=== PATIENT | male | born 1935 | race Caucasian/White ===

== ENCOUNTER 2016-03-13 10:50 | Day surgery (SDC) | payer MEDICARE, OTHER ==
[~2016-03-13 10:50] MED LIST: RINGERS SOLUTION,LACTATED 1,000 ML IV PRN
[2016-03-13 14:06] VITALS: BP 141/91
--- NOTE | 2016-03-13 17:52 | OR ---
Operative Report - Dictated Report Narrative: OPERATIVE REPORT DATE OF OPERATION: 03/13/2016 PREOPERATIVE DIAGNOSIS: Epigastric pain POSTOPERATIVE DIAGNOSIS: Esophageal stenosis with inability to enter the proximal esophagus OPERATION: Attempted EGD SURGEON: Yari Crowe MD ANESTHESIA: JEISON Dean CRNA INDICATIONS FOR PROCEDURE: The patient is an 80-year-old male referred by Dr. Lupe Churchill. The patient has had a previous Mike fundoplication with a long history of GERD symptoms and gastritis on 3 previous EGDs (most recent 2013 ) FINDINGS: Normal-appearing supraglottic larynx. Apparent stenosis at the level of the cricopharyngeus with inability to intubate the proximal esophagus. NARRATIVE OF PROCEDURE: The patient was identified preoperatively and prior to the administration of anesthetic a multidisciplinary timeout was observed. With the patient in the recumbent position and after the administration of intravenous sedation a bite block was placed and the patient's eyes covered with a towel. The flexible fiberoptic gastroscope was advanced into the posterior pharynx which appeared normal. The supraglottic larynx appeared normal. The cords appeared normal, moved well, and opposed in the midline. The scope was advanced under direct vision posterior to the larynx where a very narrow cricopharyngeal opening was encountered. Multiple attempts at maneuvering the scope were unsuccessful in intubation of the esophagus and the procedure was abandoned. The patient tolerated the anesthetic and procedure well without complication. He was transferred back to the ambulatory surgery area awake and in stable condition. The patient remained stable throughout a period of postoperative observation. He denied pain. He was able to tolerate PO intake and was up without assistance. I shared the operative findings with him and his daughter. He was given copies of the photographs which appear in the medical record. He was discharged home with instructions not to engage in hazardous activity today but he may return to normal activity tomorrow and advance diet as tolerated. I will discuss the patient with Dr. Lupe Churchill and make arrangements for further workup and testing as deemed appropriate. Reviewed and electronically signed
== END 2016-03-13 10:51 | disposition home or self-care (01) ==
LOC: AMB 10:50
PROVIDERS: ATTEND Surgery
PROC: 0DJ08ZZ Inspection of Upper Intestinal Tract, Via Natural or Artificial Opening Endoscopic (ICD-10-PCS; principal; 2016-03-13 16:00)
DX: K22.2 Esophageal obstruction (principal); I10 Essential (primary) hypertension; K21.9 Gastro-esophageal reflux disease without esophagitis; Z87.891 Personal history of nicotine dependence; Z68.28 Body mass index [BMI] 28.0-28.9, adult

== ENCOUNTER 2016-03-31 14:28 | Observation (INO) | payer MEDICARE, OTHER ==
--- OUTSIDE RECORDS SUMMARY | 2016-03-31 15:14 | XMS REPORT | Continuity of Care Document ---
:1935 Author Organization [facility] ([facility]) Address [address] [place] [address] Phone [phone] Care Team Providers Name Role Phone LupeIsaac Pedro Primary Care Provider [phone] Source Comments This disclosure is being made pursuant to the Care Everywhere program, applicable federal and state laws, and may not contain all informaitonavailable regarding this patient.[facility] ([facility]) Active Allergies and Adverse Reactions Allergen Noted Date Severity Reactions Comments Penicillins 10/19/2009 Angioedema Current Medications Prescription Sig. Disp. Refills Start Date End Date Status diazepam (VALIUM) 5 mg Take 5 mg by mouth Active tablet every 6 hours as needed. Ketoconazole (NIZORAL by Apply externally Active A-D) 1 % Sham route. meTHIMAzole 5 mg tablet Take 5 mg by mouth 3 Active times daily. citalopram 20 mg tablet Take 20 mg by mouth Active daily. OTHER Take by mouth Active daily. Vit D3 1000 iu omeprazole (PRILOSEC) 20 Take 20 mg by mouth Active mg extended release daily. capsule ACETAMINOPHEN (TYLENOL Take 1-2 Tabs by Active PO) mouth as needed. 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 Pulse 61 02/05/2015 9:22 PM WOOD FINISHER APPRENTICE Temperature 35.9 C (96.6 F) 02/05/2015 9:22 PM WOOD FINISHER APPRENTICE Respiratory Rate 20 02/05/2015 9:22 PM WOOD FINISHER APPRENTICE Height 1.72 m (5' 7.72") 05/24/2010 10:43 AM CDT Weight 64.864 kg (143 lb) 05/24/2010 10:43 AM CDT Body Mass Index 21.93 05/24/2010 10:43 AM CDT Oxygen Saturation 90% 02/05/2015 9:22 PM 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
--- NOTE | 2016-03-31 15:15 | ERNOTE ---
Dizziness ER Record Presenting Symptoms: dizziness Time Seen by Provider: 03/31/16 14:38 Source: patient, family - daughter and grandson Immunizations: IMMUNIZATION HX Immunizations Up to Date Yes History of Influenza Vaccine Yes Hx Pneumococcal Vaccination Yes Allergies/Adverse Reactions: Allergies Allergy/AdvReac Type Severity Reaction Status Date / Time Penicillins Allergy Intermediate FEET Verified 03/31/16 14:42 SWELLING Home Medications: HOME MEDICATIONS Diazepam [Valium] 5 mg PO DAILY PRN 04/10/13 [Last Taken Unknown] Esomeprazole Magnesium [Nexium] 40 mg PO DAILY 04/10/13 [Last Taken Unknown] Sennosides [Senna] 2 tab PO BID PRN 04/10/13 [Last Taken Unknown] Albuterol Sulfate/Ipratropium [Duoneb 2.5-0.5MG/3ML Soln] 3 ml IH Q4HX2 PRN MDD 6 DOSES 03/10/16 [Last Taken Unknown] Albuterol Sulfate/Ipratropium [Duoneb 2.5-0.5MG/3ML Soln] 3 ml IH QID 03/10/16 [ Last Taken Unknown] Atenolol [Tenormin] 50 mg PO DAILY 03/10/16 [Last Taken 03/12/16] Azelastine HCl [Astepro Nasal [place]] 2 spray NS BID 03/10/16 [Last Taken Unknown ] Calcitriol [Rocaltrol] 0.25 mcg PO DAILY 03/10/16 [Last Taken Unknown] Sucralfate [Carafate] 1 gm PO QID 03/10/16 [Last Taken Unknown] Diltiazem HCl [Cardizem LA] 180 mg PO DAILY 03/31/16 [Last Taken Unknown] - History of Present Illness Narrative: PT STATES HE STARTED A NEW MEDICINE TODAY , CARDIZEM LA 180 MG , TAKEN ABOUT 0830 AND THEN ABOUT 1300 NOTED FEELING DIZZY AND LIGHTHEADED ESPECIALLY WHEN HE TRIED TO STAND SO HE CAME IN. HE RELATES THAT [address] ROBERTO TRIED TO DO AN EGD BUT HIS ESOPHAGUS WAS TOO TIGHT AND HE WAS TOLD THAT HIS OLD BP MEDICINE , AMLODIPINE 2.5 MG, MAY BE CAUSING IT. HE CONSULTED WITH DR HORN AND THEY DECIDED TO START THE NEW ONE WHICH HE JUST PICKED UP YESTERDAY AND TOOK TODAY . PT DENIES ANY SOB OR CHEST PAINS. HE SAYS HE HAS BEEN TAKING THE AMLODIPINE UP UNTIL YESTERDAY. HE FEELS FINE WHILE LAYING HERE ON THE ER CART. Review of Systems - Review of Systems Constitutional: Present: See HPI EYE: Present: no symptoms reported ENT: Present: no symptoms reported Respiratory: Present: no symptoms reported Cardiology: Present: no symptoms reported Gastrointestinal/Abdominal: Present: no symptoms reported Genitourinary: Present: no symptoms reported Musculoskeletal: Present: no symptoms reported Skin: Present: no symptoms reported Neurological: Present: dizziness/light-headedness Endocrine: Present: no symptoms reported Hematologic/Lymphatic: Present: no symptoms reported Psych: Present: no symptoms reported All Other Systems: All systems neg except as marked - Patient's Past Medical History Patient History - Medical: Chronic Pain, GERD, Renal Failure, Other Patient History - Cardiac/Respiratory: Hypertension Patient History - Cancer: Skin Patient History - Surgical Procedures: Appendectomy, Back Surgery, Cancer Surgery, Colonoscopy, EGD, Total Hip Replacement, Other - TANIKA Patient History - Other: None - Family History Mother Family History - Medical: , Arthritis, Diabetes Type 2, Liver Disease, Renal Disease, Other Family History - Cardiac/Respiratory: Hypertension Family History - Cancer: No pertinent family hx Father Family History - Medical: , Other Family History - Cardiac/Respiratory: No pertinent hx Family History - Cancer: No pertinent family hx - Social History Living Situations: alone Abuse History: No History of abuse Psych History: Current tx/ever been on anti-depressants or anti-anxiety meds Smoking Status: Former smoker Alcohol Use: none Drug Use: none - Immunizations Immunizations Up to Date: Yes Hx Pneumococcal Vaccination: Yes History of Influenza Vaccine: Yes Physical Exam - Physical Exam General Appearance: Present: wd/wn, alert, no apparent distress Respiratory: Present: no respiratory distress, normal breath sounds, no accessory muscle use, chest nontender, lungs clear Cardiovascular/Chest: Present: regular rate, rhythm, no murmur, normal peripheral pulses, bradycardia, other - HEART RATE STEADY AT 40 BPM. Gastrointestinal/Abdominal: Present: normal bowel sounds, nontender, nondistended, soft, no organomegaly Extremity Exam: Present: normal inspection, non-tender, no edema, normal range of motion Neurological Exam: Present: alert, oriented, normal mood/affect, no motor/ sensory deficits Skin Exam: Present: normal color, warm/dry ED Progress - Date and Time Seen: Date and Time: 03/31/16 15:14 CALLED TO TALK WITH PCP , DR BLANC , OFFICE SAY THEY WILL FIND HIM AND HAVE HIM CALL ME BACK. 03/31/16 15:[address] HORN = HE WILL ADMIT TO OBS FOR TELEMETRY. PT AND FAMILY WERE MADE AWARE. - Results and Orders Patient's Lab Results:: I have reviewed the patient's lab results. Results and Orders: CBC DONE , CMP AND TROPONIN STILL PENDING. TROPONIN = WNL AND HIS CREATININE IS HIGH AND GLUCOSE IS SL. ELEVATED WELL ( 156) - Vital Signs Vital Signs: Vital Signs 03/31/16 03/31/16 14:30 15:00 Temperature 35.1 C L 35.1 C L Pulse Rate 39 L 39 L Respiratory 19 19 Rate Blood Pressure 98/57 98/51 O2 Sat by Pulse 93 95 Oximetry - EKG EKG: other - SUPRAVENTRICULAR STEVIE CARDIA WITH HR 39, - X-Ray X-Ray #1 X-Ray: chest X-ray Comments: Patient Patient Name:HYACINTH TAMEZ Date: 1935 Sex: M Order Number: [id number] Unique Exam ID: [id number] Exam Requested: CXRSINGLE - Chest Single View * Date Scheduled: Study Priority: Requesting Service: Requesting Physician: Brady Gallardo Reason for Exam: Radiological Report : Exam Date: 03/31/2016 14:56 Ordering Physician: Brady Gallardo Indication: Bradycardia Comparison: August 18, 2015 Technique: Chest Single View * Findings: The lungs demonstrate no focal consolidation or acute abnormality. There is no pleural effusion or pneumothorax. Cardiac silhouette and pulmonary vasculature are normal. The osseous structures are within normal limits for age. IMPRESSION: No acute cardiopulmonary process detected Electronically signed by Krishan Sim M.D.. - Progress/Reassessment Chief Complaint: Dizziness Progress:: Unchanged Plan - Plan Plan: AFTER D/W PCP . PT WILL ADMITTED TO OBS-TELE. Departure Clinical Impression: Bradycardia, Medication adverse effect - Departure Disposition: [facility] Condition: Fair
[2016-03-31 15:18] LABS: Hematocrit 48.2 % (42.0-52.0); Hemoglobin 15.5 gm/dL (13.5-18.0); Mean Cell Volume 95.8 fl (78-100); Mean Corpuscular Hemoglobin 30.8 pg (27-31); Mean Corpuscular Hgb Conc 32.2 g/dl (32-36); Neutrophil % 61.4 % (42-75.0); Platelet Count 212 K/mm3 (150-450); Red Blood Count 5.03 M/mm3 (4.7-6.0); Red Cell Distribution Width 14.7 % (11.5-14.0); White Blood Count 9.8 K/mm3 (4.0-10.5)
[2016-03-31] MEDS ORDERED: NORMAL SALINE 1,000 ML IV ONE (15:23)
[2016-03-31] MEDS ORDERED: NORMAL SALINE 500 ML IV ONE (15:27)
[2016-03-31 15:34] LABS: ALT 25 U/L (19-67); AST 22 U/L (0-48); Albumin * 3.2 gm/dl (3.4-5.0); Alkaline Phosphatase * 63 U/L (50-170); Anion Gap 14.7 mmol/L (6.8-13.8); BUN/Creatinine Ratio 6.7 (9.0-21.6); Bilirubin, Total 0.3 mg/dL (0.0-1.1); Blood Urea Nitrogen 21 mg/dL (6-23); Ca. Corrected For Albumin 9.4 mg/dL (8.4-10.2); Calcium * 9.1 mg/dL (7.9-10.9); Carbon Dioxide 23.9 mmol/L (24-32.6); Chloride 105 mmol/L (97-106); Glucose * 156 mg/dL (70-110); Potassium 4.6 mmol/L (3.4-4.6); Sodium 139 mmol/L (132-142); Total Protein 7.4 gm/dL (6.2-8.2)
[2016-03-31 15:46] LABS: Troponin I Less than 0.017 ng/ml (0.00-0.10)
--- OUTSIDE RECORDS SUMMARY | 2016-03-31 15:46 | XMS REPORT | Continuity of Care Document ---
:1935 Author Organization [facility] ([facility]) Address [address] [place] [address] Phone [phone] Care Team Providers Name Role Phone LupeIsaac Pedro Primary Care Provider [phone] Source Comments This disclosure is being made pursuant to the Care Everywhere program, applicable federal and state laws, and may not contain all informaitonavailable regarding this patient.[facility] ([facility]) Active Allergies and Adverse Reactions Allergen Noted [...] Taken Blood Pressure 137/64 02/05/2015 9:22 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
[2016-03-31] MEDS: NORMAL SALINE 1,000 ML IV PRN ×2 (15:56→20:30)
[2016-03-31] MEDS ORDERED: ACETAMINOPHEN 325 MG TABLET PO PRN (17:32)
[2016-03-31] MEDS ORDERED: ALBUTEROL SULFATE/IPRATROPIUM 3 ML NEBU IH PRN (17:32)
[2016-03-31] MEDS ORDERED: SENNOSIDES 8.6 MG TABLET PO PRN (17:32)
[2016-03-31] MEDS ORDERED: DIAZEPAM 5 MG TABLET PO PRN (17:32)
--- NOTE | 2016-03-31 17:32 | HP ---
Chief Complaint - Chief Complaint Date of Service: 03/31/16 Time of Service: 18:05 Chief Complaint: Dizziness History of Present Illness: PT STATES HE STARTED A NEW MEDICINE TODAY , CARDIZEM LA 180 MG , TAKEN ABOUT 0830 AND THEN ABOUT 1300 NOTED FEELING DIZZY AND LIGHTHEADED ESPECIALLY WHEN HE TRIED TO STAND SO HE CAME IN TO THE [facility] ER. HE RELATES THAT [address] ROBERTO TRIED TO DO AN EGD, BUT HIS ESOPHAGUS WAS TOO TIGHT AND HE WAS TOLD THAT HIS OLD BP MEDICINE , AMLODIPINE 2.5 MG, MAY BE CAUSING IT. HE CONSULTED WITH DR HORN AND THEY DECIDED TO START THE NEW ONE WHICH HE JUST PICKED UP YESTERDAY AND TOOK TODAY . PT DENIES ANY SOB OR CHEST PAINS. HE SAYS HE HAS BEEN TAKING THE AMLODIPINE UP UNTIL YESTERDAY. HE FEELS FINE WHILE LAYING HERE ON THE ER CART. HE DID IN FACT SUBSEQUENTLY TO THE ATTEMPTED EGD, HAVE A BARIUM SWALLOW WHICH SHOWED MILD REFLUX AND TERTIARY SPASMS OF THE DISTAL ESOPHAGUS. IN THE EMERGENCY ROOM TODAY HE WAS FOUND TO HAVE A BP OF ABOUT 90 SYSTOLIC AND A PULSE RATE IN THE 30's WITH THE EKG SHOWING SUPRAVENTRICULAR BRADYCARDIA AND THE CXR BEING NON ACUTE. - Patient's Past Medical History Patient History - Medical: Chronic Pain, GERD, Renal Failure, Other - Chronic rhinitis, dizziness, hepatitis, tachycardia Patient History - Cardiac/Respiratory: Hypertension Patient History - Cancer: Skin Patient History - Surgical Procedures: Appendectomy, Back Surgery, Cancer Surgery, Colonoscopy, EGD, Total Hip Replacement, Other - TANIKA Patient History - Other: None - Family History Mother Family History - Medical: , Arthritis, Diabetes Type 2, Liver Disease, Renal Disease Family History - Cardiac/Respiratory: Hypertension Family History - Cancer: No pertinent family hx Father Family History - Medical: Family History - Cardiac/Respiratory: No pertinent hx Family History - Cancer: No pertinent family hx - Social History Living Situations: alone Abuse History: No History of abuse Psych History: Current tx/ever been on anti-depressants or anti-anxiety meds Smoking Status: Former smoker Have you smoked in the past 12 months: No Do you dip or chew tobacco: No Smoking Stop Date: 08/26/14 Alcohol Use: none Drug Use: none - Immunizations Immunizations Up to Date: Yes Hx Pneumococcal Vaccination: Yes History of Influenza Vaccine: Yes Review Of Systems (GEN) - Review of Systems Generalized/Overall Review: Present: Weakness, Fatigue EENTM: Present: No Symptoms Reported Respiratory: Present: No Symptoms Reported Cardiac: Present: No Symptoms Reported Abdominal: Present: No Symptoms Reported Genitourinary: Present: No Symptoms Reported Musculoskeletal: Present: Other - Right buttock and proximal right thigh pain, with abnormal ZOFIA right leg. Neurological: Present: No Symptoms Reported Skin: Present: No Symptoms Reported Endocrine: Present: No Symptoms Reported Misc: All systems neg except as marked Immunizations: IMMUNIZATION HX Immunizations Up to Date Yes History of Influenza Vaccine Yes Hx Pneumococcal Vaccination Yes Allergies/Adverse Reactions: Allergies Allergy/AdvReac Type Severity Reaction Status Date / Time Penicillins Allergy Intermediate FEET Verified 03/31/16 17:16 SWELLING diltiazem AdvReac Severe significant Verified 03/31/16 17:59 bradycardia to the 30's Home Medications: HOME MEDICATIONS Diazepam [Valium] 5 mg PO DAILY PRN 04/10/13 [Last Taken Unknown] Esomeprazole Magnesium [Nexium] 40 mg PO DAILY 04/10/13 [Last Taken Unknown] Sennosides [Senna] 2 tab PO BID PRN 04/10/13 [Last Taken Unknown] Albuterol Sulfate/Ipratropium [Duoneb 2.5-0.5MG/3ML Soln] 3 ml IH Q4HX2 PRN MDD 6 DOSES 03/10/16 [Last Taken Unknown] Albuterol Sulfate/Ipratropium [Duoneb 2.5-0.5MG/3ML Soln] 3 ml IH QID 03/10/16 [ Last Taken Unknown] Atenolol [Tenormin] 50 mg PO DAILY 03/10/16 [Last Taken 03/12/16] Azelastine HCl [Astepro Nasal [place]] 2 spray NS BID 03/10/16 [Last Taken Unknown ] Calcitriol [Rocaltrol] 0.25 mcg PO DAILY 03/10/16 [Last Taken Unknown] Sucralfate [Carafate] 1 gm PO QID 03/10/16 [Last Taken Unknown] Acetaminophen [Tylenol] 650 mg PO QID PRN 03/31/16 [Last Taken Unknown] Diltiazem HCl [Cardizem LA] 180 mg PO DAILY 03/31/16 [Last Taken Unknown] Exam - Exam Vital Signs: Vital Signs - Last Taken Selected Entries 03/31/16 03/31/16 03/31/16 14:30 15:00 15:54 Temperature 35.1 C L 35.1 C L Temperature Tympanic Tympanic Source Pulse Rate 39 L 39 L 36 L Respiratory 19 19 19 Rate Blood Pressure 98/57 98/51 95/50 O2 Sat by Pulse 93 95 95 Oximetry Oxygen Delivery Room Air Room Air Room Air Method 03/31/16 16:50 Temperature 36.4 C L Temperature Oral Source Pulse Rate 35 L Respiratory 16 Rate Blood Pressure 87/42 O2 Sat by Pulse 93 Oximetry Oxygen Delivery Room Air Method Constitutional: Present: Alert, Oriented x3, Cooperative, Well developed, Well nourished, No distress, Elderly ENT Exam: Present: normal ENT inspection, pharynx normal, TMs normal Eye Exam: bilateral eye: normal inspection, PERRL, EOMI Neck: Present: normal inspection Back Exam: Present: normal inspection Respiratory: Present: lungs clear, no respiratory distress Cardiovascular/Chest: Present: regular rate, rhythm, no murmur, bradycardia Abdomen: Present: Normal bowel sounds, soft, nontender, nondistended, no rebound tenderness, no hepatospenomegaly, no masses Extremity: Present: normal inspection, no pedal edema Skin Exam: Present: normal color, warm/dry, no cyanosis Neurologic: Present: alert, oriented x 3 Appearance: Present: appropriate appearance, appropriate insight, neat, no memory impairment Eye contact: Present: cooperative, good eye contact, normal speech Thoughts: Present: normal thought pattern Diagnostic Studies: Laboratory Results WBC 9.8 K/mm3 (4.0-10.5) 03/31/16 15:10 RBC 5.03 M/mm3 (4.7-6.0) 03/31/16 15:10 Hgb 15.5 gm/dL (13.5-18.0) 03/31/16 15:10 Hct 48.2 % (42.0-52.0) 03/31/16 15:10 MCV 95.8 fl (78-100) 03/31/16 15:10 MCH 30.8 pg (27-31) 03/31/16 15:10 MCHC 32.2 g/dl (32-36) 03/31/16 15:10 RDW 14.7 % (11.5-14.0) H 03/31/16 15:10 Plt Count 212 K/mm3 (150-450) 03/31/16 15:10 MPV 11.0 fl (6.0-9.5) H 03/31/16 15:10 Immature Gran % (Auto) 0.70 % (0.001-0.429) H 03/31/16 15:10 Immature Gran # (Auto) 0.07 K/mm3 (0.000-0.0310) H 03/31/16 15:10 Neutrophils % 61.4 % (42-75.0) 03/31/16 15:10 Lymphocytes % 25.0 % (20-51) 03/31/16 15:10 Monocytes % 8.1 % (0.0-9) 03/31/16 15:10 Eosinophils % 3.9 % (0.0-3.0) H 03/31/16 15:10 Basophils % 0.9 % (0.0-1.0) 03/31/16 15:10 Nucleated RBC % 0.0 k/mm3 (0-1) 03/31/16 15:10 Neutrophils # 6.0 K/mm3 (1.3-6.0) 03/31/16 15:10 Lymphocytes # 2.4 k/mm3 (1.5-3.5) 03/31/16 15:10 Monocytes # 0.8 k/mm3 (0.0-1.0) 03/31/16 15:10 Eosinophils # 0.4 k/mm3 (0.0-0.7) 03/31/16 15:10 Absolute Basophils 0.1 k/mm3 (0.0-0.1) 03/31/16 15:10 Sodium 139 mmol/L (132-142) 03/31/16 15:10 Plasma Sodium 140 mmol/L (130-142) 03/31/16 15:10 Potassium 4.6 mmol/L (3.4-4.6) 03/31/16 15:10 Chloride 105 mmol/L (97-106) 03/31/16 15:10 Carbon Dioxide 23.9 mmol/L (24-32.6) L 03/31/16 15:10 Anion Gap 14.7 mmol/L (6.8-13.8) H 03/31/16 15:10 BUN 21 mg/dL (6-23) 03/31/16 15:10 Creatinine 3.12 mg/dL (0.4-1.4) H 03/31/16 15:10 Est GFR (Non-Af Amer) 21 mL/min (60-130) L 03/31/16 15:10 BUN/Creatinine Ratio 6.7 (9.0-21.6) L 03/31/16 15:10 Random Glucose 156 mg/dL (70-110) H 03/31/16 15:10 Calcium 9.1 mg/dL (7.9-10.9) 03/31/16 15:10 Calcium Adj for Albumin 9.4 mg/dL (8.4-10.2) 03/31/16 15:10 Total Bilirubin 0.3 mg/dL (0.0-1.1) 03/31/16 15:10 AST 22 U/L (0-48) 03/31/16 15:10 ALT 25 U/L (19-67) 03/31/16 15:10 Alkaline Phosphatase 63 U/L (50-170) 03/31/16 15:10 Troponin I Less than 0.017 ng/ml (0.00-0.10) 03/31/16 15:10 Total Protein 7.4 gm/dL (6.2-8.2) 03/31/16 15:10 Albumin 3.2 gm/dl (3.4-5.0) L 03/31/16 15:10 Assessment/Plan - Narrative Narrative: Monitor. Support BP as needed. Up with help. Avoid beta blockers and calcium channel blockers with chronotropic effects. Estimate stay of one midnight. Will need vascular and nephrology evaluation as an outpatient. IV fluids. - Assessment/Plan (1) Hypertension Problem: Chronic Qualifiers: Hypertension type: essential hypertension Qualified Code(s): I10 - Essential (primary) hypertension (2) Tachycardia Problem: Chronic (3) Chronic rhinitis Problem: Chronic (4) Dizziness Assessment: Both acute with this medication and chronically in the past, off and on Problem: Acute (5) Esophageal spasm Problem: Chronic (6) GERD (gastroesophageal reflux disease) Problem: Chronic (7) DJD (degenerative joint disease) Problem: Chronic Qualifiers: Osteoarthritis location: unspecified site Osteoarthritis type: primary Qualified Code(s): M19.91 - Primary osteoarthritis, unspecified site (8) Chronic pain syndrome Problem: Chronic (9) Bradycardia Problem: Acute (10) Medication adverse effect Assessment: probably due to diltiazem. Problem: Acute (11) Claudication of right lower extremity Problem: Acute (12) Acute renal failure superimposed on stage 4 chronic kidney disease Problem: Acute
[2016-03-31] MEDS ORDERED: ENOXAPARIN SODIUM 30 MG/0.3 ML SYRG SC SCH (17:45)
[2016-03-31] MEDS: SUCRALFATE 1 G TABLET PO SCH ×2 (18:48→20:31)
[2016-03-31] MEDS: ALBUTEROL SULFATE/IPRATROPIUM 3 ML NEBU IH SCH (19:23)
[2016-03-31] MEDS: AZELASTINE HCL 200 SPRAY INHALER NS SCH (20:31)
[2016-04-01] MEDS: ALBUTEROL SULFATE/IPRATROPIUM 3 ML NEBU IH SCH (06:07)
[2016-04-01 06:20] LABS: Hematocrit 40.6 % (42.0-52.0); Hemoglobin 13.3 gm/dL (13.5-18.0); Mean Cell Volume 95.1 fl (78-100); Mean Corpuscular Hemoglobin 31.1 pg (27-31); Mean Corpuscular Hgb Conc 32.8 g/dl (32-36); Mean Platelet Volume 11.2 fl (6.0-9.5); Neutrophil % 70.3 % (42-75.0); Platelet Count 162 K/mm3 (150-450); Red Blood Count 4.27 M/mm3 (4.7-6.0)
[2016-04-01 06:28] VITALS: BP 114/57
[2016-04-01 06:50] LABS: Anion Gap 17.1 mmol/L (6.8-13.8); BUN/Creatinine Ratio 7.8 (9.0-21.6); Calcium * 8.7 mg/dL (7.9-10.9); Carbon Dioxide 21.1 mmol/L (24-32.6); Potassium 4.2 mmol/L (3.4-4.6); T4 Free * 0.95 ng/dL (0.76-1.46); TSH * 3.39 uIU/mL (0.358-3.74)
[2016-04-01] MEDS ORDERED: PANTOPRAZOLE SODIUM 40 MG TABLET.EC PO SCH (07:00)
--- NOTE | 2016-04-01 07:09 | DS ---
(1) Hypertension Problem: Chronic Qualifiers: Hypertension type: essential hypertension Qualified Code(s): I10 - Essential (primary) hypertension (2) Tachycardia Problem: Chronic (3) Chronic rhinitis Problem: Chronic (4) Dizziness Problem: Resolved (5) Esophageal spasm Problem: Chronic (6) GERD (gastroesophageal reflux disease) Problem: Chronic Qualifiers: Esophagitis presence: without esophagitis Qualified Code(s): K21.9 - Gastro -esophageal reflux disease without esophagitis (7) DJD (degenerative joint disease) Problem: Chronic Qualifiers: Osteoarthritis location: unspecified site Osteoarthritis type: primary Qualified Code(s): M19.91 - Primary osteoarthritis, unspecified site (8) Chronic pain syndrome Problem: Chronic (9) Bradycardia Problem: Resolved (10) Medication adverse effect Problem: Resolved (11) Claudication of right lower extremity Problem: Acute (12) Acute renal failure superimposed on stage 4 chronic kidney disease Problem: Acute Description of Stay: Both his beta brian and diltiazem were stopped. His moderately severe bradycardia and hyptotension resolved spontaneously. This morning, he is symptom free, his pulse is in the 70's and his BP ranges from 110-120 systolic. He already sees Dr. Hart for his stage 4 renal failure, and I note his creatinine is a little higher this morning than it was yesterday. He has claudication in his right leg, and we will refer him to vascular when I see him in the office in 6 days. Procedures Performed: none Discharge Disposition: Home self care Disposition: Home self-care Condition: Good Discharge Diet: General/regular food Referrals: Pedro Paz MD [Primary Care Provider] - Problem Oriented Discharge Instructions to Patient/Family: Bradycardia Additional Patient Instructions (free text): Followup with Dr. Neri in 6 days. CBC and BMP blood test in 6 days. Complete Home Medications List: Complete Home Medication List: Diazepam [Valium] 5 mg PO DAILY PRN 04/10/13 Esomeprazole Magnesium [Nexium] 40 mg PO DAILY 04/10/13 Sennosides [Senna] 2 tab PO BID PRN 04/10/13 Albuterol Sulfate/Ipratropium [Duoneb 2.5-0.5MG/3ML Soln] 3 ml IH Q4HX2 PRN MDD 6 DOSES 03/10/16 Albuterol Sulfate/Ipratropium [Duoneb 2.5-0.5MG/3ML Soln] 3 ml IH QID 03/10/16 Azelastine HCl [Astepro Nasal [place]] 2 spray NS BID 03/10/16 Calcitriol 0.25 mcg PO DAILY 03/10/16 Sucralfate [Carafate] 1 gm PO QID 03/10/16 Acetaminophen [Tylenol] 650 mg PO QID PRN 03/31/16
[2016-04-01] MEDS: SUCRALFATE 1 G TABLET PO SCH (08:17)
[2016-04-01] MEDS: AZELASTINE HCL 200 SPRAY INHALER NS SCH (08:17)
[2016-04-01] MEDS ORDERED: CALCITRIOL 0.25 MCG CAPSULE PO SCH (09:00)
== END 2016-04-01 10:00 | disposition home or self-care (01) ==
LOC: ER 14:28 → MS 15:41
PROVIDERS: ADMIT Allergy & Immunology; ATTEND Allergy & Immunology
DX: R00.1 Bradycardia, unspecified (principal); T46.1X5A Adverse effect of calcium-channel blockers, initial encounter; I95.2 Hypotension due to drugs; N17.9 Acute kidney failure, unspecified; I12.9 Hypertensive chronic kidney disease with stage 1 through stage 4 chronic kidney disease, or unspecified chronic kidney disease; N18.4 Chronic kidney disease, stage 4 (severe); Z87.891 Personal history of nicotine dependence; I73.9 Peripheral vascular disease, unspecified; G89.4 Chronic pain syndrome; M15.9 Polyosteoarthritis, unspecified; K21.9 Gastro-esophageal reflux disease without esophagitis; R00.0 Tachycardia, unspecified
CPT/HCPCS: 36415; 71010; 80048; 80053; 84439; 84443; 84484; 85025; 93005; 94640; 96372; 99283; G0378

== ENCOUNTER 2016-12-13 17:46 | Emergency (ER) | payer MEDICARE, OTHER ==
--- NOTE | 2016-12-13 18:15 | ERNOTE ---
Dizziness ER Record Presenting Symptoms: dizziness Time Seen by Provider: 12/13/16 18:05 Source: patient Exam Limitations: no limitations Immunizations: IMMUNIZATION HX Immunizations Up to Date Yes History of Influenza Vaccine Yes Hx Pneumococcal Vaccination Yes Allergies/Adverse Reactions: Allergies Allergy/AdvReac Type Severity Reaction Status Date / Time Penicillins Allergy Intermediate FEET Verified 12/13/16 17:57 SWELLING diltiazem AdvReac Severe significant Verified 12/13/16 17:57 bradycardia to the 30's Home Medications: HOME MEDICATIONS Diazepam [Valium] 5 mg PO DAILY PRN 04/10/13 [Last Taken Unknown] Esomeprazole Magnesium [Nexium] 40 mg PO DAILY 04/10/13 [Last Taken Unknown] Sennosides [Senna] 2 tab PO BID PRN 04/10/13 [Last Taken Unknown] Azelastine HCl [Astepro Nasal [place]] 2 spray NS BID 03/10/16 [Last Taken Unknown ] Calcitriol 0.25 mcg PO DAILY 03/10/16 [Last Taken Unknown] Sucralfate [Carafate] 1 gm PO QID 03/10/16 [Last Taken Unknown] Acetaminophen [Tylenol] 650 mg PO QID PRN 03/31/16 [Last Taken Unknown] Hydrocortisone Valerate 0.2 appl TP BID 09/12/16 [Last Taken Unknown] Lipitor 80 mg PO DAILY 09/12/16 [Last Taken Unknown] Enalapril Maleate [Vasotec] 2.5 mg PO DAILY 12/13/16 [Last Taken Unknown] Ipratropium [place] [Ipratropium [place] (Atrovent)] 0.5 mg IH QID 12/13/16 [ Last Taken Unknown] Ipratropium/Albuterol Sulfate [Combivent Respimat Inhal [place]] 1 puff IH QID 02/28 [Last Taken Unknown] Meclizine HCl 25 mg PO BID #10 tablet 12/13/16 [Last Taken Unknown] Pantoprazole Sodium [Protonix] 40 mg PO DAILY 12/13/16 [Last Taken Unknown] - History of Present Illness Narrative: Patient presents to the emergency room for dizziness that he's had for 6 months. He states that he blames it on a heart medicine however this examiner is unable to find any cardiac medication that this patient is taking. Denies any headaches lightheadedness and blurry vision or visual changes he states that he has been dizzy for 6 months. Review of Systems - Review of Systems Constitutional: Present: no symptoms reported EYE: Present: no symptoms reported ENT: Present: no symptoms reported Respiratory: Present: no symptoms reported Cardiology: Present: no symptoms reported Gastrointestinal/Abdominal: Present: no symptoms reported Genitourinary: Present: no symptoms reported Musculoskeletal: Present: no symptoms reported Skin: Present: no symptoms reported Neurological: Present: dizziness/light-headedness - patient complains of having been dizzy for 6 months. - Patient's Past Medical History Patient History - Medical: Chronic Pain, GERD, Renal Failure, Other Patient History - Cardiac/Respiratory: Hypertension Patient History - Cancer: Skin Patient History - Surgical Procedures: Appendectomy, Back Surgery, Cancer Surgery, Colonoscopy, EGD, Total Hip Replacement, Other Patient History - Other: None - Family History Mother Family History - Medical: , Arthritis, Diabetes Type 2, Liver Disease, Renal Disease Family History - Cardiac/Respiratory: Hypertension Family History - Cancer: No pertinent family hx Father Family History - Medical: Family History - Cardiac/Respiratory: No pertinent hx Family History - Cancer: No pertinent family hx - Social History Living Situations: home Abuse History: No History of abuse Psych History: Current tx/ever been on anti-depressants or anti-anxiety meds Alcohol Use: none Drug Use: none - Immunizations Immunizations Up to Date: Yes Hx Pneumococcal Vaccination: Yes History of Influenza Vaccine: Yes Physical Exam - Physical Exam General Appearance: Present: wd/wn, alert, no apparent distress Head Exam: Present: normal inspection, no evidence of injury Eye Exam: Normal inspection: bilateral, PERRL: bilateral, EOMI: bilateral Ears, Nose, Throat: Present: normal ENT inspection, normal pharynx Neck: Present: normal inspection, nontender, supple Respiratory: Present: no respiratory distress, normal breath sounds, no accessory muscle use, chest nontender, lungs clear Cardiovascular/Chest: Present: regular rate, rhythm, no murmur, normal peripheral pulses Neurological Exam: Present: alert, oriented, normal mood/affect, other - patient is awake alert and oriented he has normal facial features he is not slurring his speech. Dizziness gets worse when he turns his head. He denies any nausea or vomiting. ED Progress - Results and Orders Patient's Lab Results:: I have reviewed the patient's lab results. - Vital Signs Patient's Vital Signs:: I have reviewed the patient's vital signs. Vital Signs: Vital Signs 12/13/16 17:53 Temperature 36.2 C L Pulse Rate 73 Respiratory 12 Rate Blood Pressure 131/64 O2 Sat by Pulse 93 Oximetry - CT/Ultrasound CT/Ultrasound Narrative: CT of the head was read as no acute changes this patient has been dizzy for 6 months. - Progress/Reassessment Chief Complaint: Dizziness Plan - Plan Plan: The patient's dizziness has been going on for 6 months there is no exacerbation of his symptoms. I believe this patient may have benign positional vertigo he will be treated appropriately. Departure Clinical Impression: Benign positional vertigo Qualifiers: Laterality: unspecified laterality Qualified Code(s): H81.10 - Benign paroxysmal vertigo, unspecified ear - Departure Disposition: Home self-care Condition: Fair Instructions: Vertigo, [id number] Referrals: Pedro Paz MD [Primary Care Provider] - Prescriptions: Meclizine HCl 25 mg PO BID #10 tablet
[2016-12-13 18:24] LABS: Hematocrit 50.8 % (42.0-52.0); Hemoglobin 17.3 gm/dL (13.5-18.0); Mean Cell Volume 89.3 fl (78-100); Mean Corpuscular Hemoglobin 30.4 pg (27-31); Mean Corpuscular Hgb Conc 34.1 g/dl (32-36); Mean Platelet Volume 9.5 fl (6.0-9.5); Neutrophil # 9.1 K/mm3 (1.3-6.0); Neutrophil % 78.4 % (42-75.0); Platelet Count 251 K/mm3 (150-450); Red Blood Count 5.69 M/mm3 (4.7-6.0); White Blood Count 11.7 K/mm3 (4.0-10.5)
[2016-12-13 18:34] LABS: Albumin * 3.6 gm/dl (3.4-5.0); Anion Gap 15.5 mmol/L (6.8-13.8); BUN/Creatinine Ratio 11.4 (9.0-21.6); Bilirubin, Total 0.6 mg/dL (0.0-1.1); Ca. Corrected For Albumin 9.5 mg/dL (8.4-10.2); Calcium * 9.5 mg/dL (7.9-10.9); Carbon Dioxide 24.2 mmol/L (24-32.6); Potassium 4.7 mmol/L (3.4-4.6); Total Protein 8.1 gm/dL (6.2-8.2)
[2016-12-13 19:08] LABS: Urine Bilirubin Negative (NEGATIVE); Urine Blood 25 /ul (NEGATIVE); Urine Ketone Negative (NEGATIVE); Urine Nitrite Negative (NEGATIVE); Urine Protein 15 mg/dL (NEGATIVE); Urine Specific Gravity >=1.030 SP.GR. (1.005-1.030); Urine Urobilinogen Normal (NORMAL); Urine pH 5.5 pH (5.0-7.0)
[2016-12-13 19:16] VITALS: BP 127/71
[2016-12-13 19:20] LABS: Urine Appearance Slightly Cloudy; Urine Color Orange
[2016-12-13 19:21] LABS: Urine Amorphous Sediment Moderate - 2+ (NONE-FEW); Urine Bacteria TRACE; Urine RBC TRACE /hpf (0-5); Urine WBC None Seen /hpf (0-5)
== END 2016-12-13 19:18 | disposition home or self-care (01) ==
LOC: ER 17:46
DX: H81.10 Benign paroxysmal vertigo, unspecified ear (principal); K21.9 Gastro-esophageal reflux disease without esophagitis; Z85.828 Personal history of other malignant neoplasm of skin; I10 Essential (primary) hypertension; R06.02 Shortness of breath; Z79.899 Other long term (current) drug therapy

== ENCOUNTER 2017-01-29 07:18 | Day surgery (SDC) | payer MEDICARE, OTHER ==
--- NOTE | 2017-01-29 08:00 | OR ---
Anesthesia Pre Procedure Eval Date of Service: 01/29/17 Pre Procedure Evaluation: Last Vital Signs Temp 36.2 C L 01/29/17 07:35 Pulse 83 01/29/17 07:35 Resp 16 01/29/17 07:35 BP 142/80 01/29/17 07:35 Pulse Ox 100 01/29/17 07:35 Anesthesia Pre Procedure Evaluation DATE: 01/29/2017. TIME: 0755 INDICATIONS: Right buttock and leg pain. Sciatica right leg. PAST MEDICAL HISTORY: This 81-year-old male with a history of right buttock and leg pain. He has history of lumbar surgery with hardware. EXAM: MRI report and films were reviewed. Pain is 0/10 on pain scale at present. ASSESSMENT OF MEDICAL STATUS: O.K. to proceed with SARAH. PLANNED PROCEDURE: Right-sided epidural steroid injection L5-S1. Home Medications: HOME MEDICATIONS Diazepam [Valium] 5 mg PO DAILY PRN 04/10/13 [Last Taken Unknown] Sennosides [Senna] 2 tab PO BID PRN 04/10/13 [Last Taken Unknown] Azelastine HCl [Astepro Nasal [place]] 2 spray NS BID 03/10/16 [Last Taken Unknown ] Calcitriol 0.25 mcg PO DAILY 03/10/16 [Last Taken Unknown] Sucralfate [Carafate] 1 gm PO ACHS 03/10/16 [Last Taken Unknown] Pantoprazole Sodium [Protonix] 40 mg PO DAILY 12/13/16 [Last Taken Unknown] Albuterol Sulfate [Proair Hfa] 2 puff IH Q6H 01/26/17 [Last Taken Unknown] Albuterol Sulfate/Ipratropium [Duoneb 2.5-0.5MG/3ML Soln] 3 ml IH QID 01/26/17 [ Last Taken Unknown] Atorvastatin Calcium [Lipitor] 80 mg PO HS 01/26/17 [Last Taken Unknown] Cholecalciferol (Vitamin D3) [Vitamin D] 2,000 unit PO DAILY 01/26/17 [Last Taken Unknown] Fluticasone Propionate [Flonase] 2 spray NS DAILY 01/26/17 [Last Taken Unknown] Ipratropium [place] [Atrovent 0.06% Nasal [place]] 2 spray NS QID 01/26/17 [Last Taken Unknown] Losartan Potassium [Cozaar] 25 mg PO DAILY 01/26/17 [Last Taken Unknown]
[2017-01-29] MEDS ORDERED: LIDOCAINE HCL/PF 5 ML VIAL IJ ONE (08:15)
[2017-01-29] MEDS ORDERED: DEXAMETHASONE SOD PHOSPHATE 10 MG/ML VIAL IJ ONE (08:15)
[2017-01-29] MEDS ORDERED: IOPAMIDOL 20 ML VIAL IJ ONE (08:15)
--- NOTE | 2017-01-29 08:30 | OR ---
Anesthesia Procedure Note - Anesthesia Procedure Note Date of Service: 01/29/17 Narrative: Vital Signs - Last Taken Temp 36.2 C L 01/29/17 07:35 Pulse 82 01/29/17 08:17 Resp 16 01/29/17 08:17 BP 142/88 01/29/17 08:17 Pulse Ox 92 01/29/17 08:17 O2 Oxygen Delivery Method Room Air 01/29/17 08:27 ANESTHESIA PROCEDURE NOTE Date of Procedure: 01/29/2017. Time of procedure: 809. Performed by: Mulugeta Dean CRNA [employer] Supervisor: None. Preprocedure diagnosis: Sciatica right side, M54.31. Post procedure diagnosis: Same. Procedure: Right sided fluoroscopic guided epidural Steroid Injection L5-S1. Indications: This 81-year-old male who is been experiencing right buttocks and leg pain upon ambulation. He has had steroid injections in the past with some relief. He presents today with complaints of right buttock and leg spasm upon ambulation. He has no pain while in the sitting position. Potential risks and benefits of the procedure were discussed with the patient and consent was obtained. Findings: See below. Details of the procedure: The patient was brought back to operating room #3. The patient was then placed in the prone position to comfort. DuraPrep was applied to the patient's back. Patient was then draped in sterile fashion. Lidocaine 1% was infiltrated to the skin and subcutaneous tissues at the level of the L5-S1 interspace using fluoroscopic guidance. The epidural space was identified using a 20-gauge Tuohy needle with [id number] technique. 1 mL of Isovue contrast was then injected after negative aspiration for blood and CSF. The epidural space was outlined in the AP and lateral views. Preservative free Decadron 10mg + 5 mL of 1% preservative-free lidocaine was administered to the epidural space after negative aspiration for blood and CSF. The Tuohy needle was removed intact. A Band-Aid was applied to the patient's back. The patient was then placed in a supine position for 5 minutes before returning to the ambulatory surgical unit. Total fluoroscopy time: 17.9 seconds. Cumulative dose: 6.99 mGy. EBL: Minimal. Fluids: N/A. Specimen: N/A. Post procedure condition: The patient tolerated the procedure well. No complications were noted. No motor weaknesses or paresthesias were noted upon discharge. Thank you for this consultation. Mulugeta Dean CRNA
[2017-01-29 09:01] VITALS: BP 160/70
== END 2017-01-29 07:19 | disposition home or self-care (01) ==
LOC: SUR 07:18
PROVIDERS: ATTEND Student in an Organized Health Care Education/Training Program
PROC: 3E0R33Z Introduction of Anti-inflammatory into Spinal Canal, Percutaneous Approach (ICD-10-PCS; 2017-01-29)
PROC: B01BZZZ Fluoroscopy of Spinal Cord (ICD-10-PCS; 2017-01-29)
PROC: 3E0R3BZ Introduction of Anesthetic Agent into Spinal Canal, Percutaneous Approach (ICD-10-PCS; principal; 2017-01-29 08:00)
DX: M54.31 Sciatica, right side (principal); Z68.25 Body mass index [BMI] 25.0-25.9, adult

== ENCOUNTER 2017-02-18 08:24 | Observation (INO) | payer MEDICARE, OTHER ==
[2017-02-18] MEDS ORDERED: predniSONE 20 MG TABLET PO ONE (08:42)
[2017-02-18] MEDS ORDERED: ALBUTEROL SULFATE/IPRATROPIUM 3 ML NEBU IH ONE ×2 (08:42→08:46)
[2017-02-18] MEDS ORDERED: predniSONE 20 MG TABLET ONE (08:46)
[2017-02-18 08:57] LABS: Hematocrit 44.8 % (42.0-52.0); Hemoglobin 14.8 gm/dL (13.5-18.0); Mean Cell Volume 98.7 fl (78-100); Mean Corpuscular Hemoglobin 32.6 pg (27-31); Mean Platelet Volume 10.5 fl (6.0-9.5); Neutrophil # 7.6 K/mm3 (1.3-6.0); Neutrophil % 73.7 % (42-75.0); Platelet Count 197 K/mm3 (150-450); Red Blood Count 4.54 M/mm3 (4.7-6.0); White Blood Count 10.3 K/mm3 (4.0-10.5)
[2017-02-18 09:14] LABS: Albumin * 3.2 gm/dl (3.4-5.0); BUN/Creatinine Ratio 12.1 (9.0-21.6); Bilirubin, Total 1.3 mg/dL (0.0-1.1); Ca. Corrected For Albumin 9.2 mg/dL (8.4-10.2); Calcium * 8.9 mg/dL (7.9-10.9); Carbon Dioxide 23.6 mmol/L (24-32.6); Magnesium 1.6 mg/dL (1.2-2.8); Potassium 3.6 mmol/L (3.4-4.6); Total Protein 7.1 gm/dL (6.2-8.2)
[2017-02-18 09:18] LABS: Troponin I 0.295 ng/ml (0.00-0.10)
--- NOTE | 2017-02-18 09:37 | ERNOTE ---
Dyspnea - General Presenting Symptoms: shortness of breath Time Seen by Provider: 02/18/17 08:30 Source: patient Exam Limitations: no limitations - Immun/Allergies/Home Medications Immunizations: IMMUNIZATION HX Immunizations Up to Date Yes History of Influenza Vaccine Yes Hx Pneumococcal Vaccination Yes Allergies/Adverse Reactions: Allergies Penicillins Allergy (Intermediate, Verified 02/18/17 08:42) FEET SWELLING diltiazem Adverse Reaction (Severe, Verified 02/18/17 08:42) significant bradycardia to the 30's patient was also on a beta brian at the time Home Medications: HOME MEDICATIONS Diazepam [Valium] 5 mg PO DAILY PRN 04/10/13 [Last Taken Unknown] Sennosides [Senna] 2 tab PO HS PRN 04/10/13 [Last Taken Unknown] Azelastine HCl [Astepro Nasal [place]] 2 spray NS BID 03/10/16 [Last Taken Unknown ] Calcitriol 0.25 mcg PO DAILY 03/10/16 [Last Taken Unknown] Sucralfate [Carafate] 1 gm PO ACHS 03/10/16 [Last Taken Unknown] Pantoprazole Sodium [Protonix] 40 mg PO DAILY 12/13/16 [Last Taken Unknown] Albuterol Sulfate [Proair Hfa] 2 puff IH Q6H 01/26/17 [Last Taken Unknown] Albuterol Sulfate/Ipratropium [Duoneb 2.5-0.5MG/3ML Soln] 3 ml IH QID 01/26/17 [ Last Taken Unknown] Atorvastatin Calcium [Lipitor] 80 mg PO HS 01/26/17 [Last Taken Unknown] Cholecalciferol (Vitamin D3) [Vitamin D] 2,000 unit PO DAILY 01/26/17 [Last Taken Unknown] Ipratropium [place] [Atrovent 0.06% Nasal [place]] 2 spray NS QID 01/26/17 [Last Taken Unknown] Amlodipine Besylate [Norvasc] 2.5 mg PO DAILY 02/18/17 [Last Taken Unknown] Enalapril Maleate [Vasotec] 2.5 mg PO DAILY 02/18/17 [Last Taken Unknown] Esomeprazole Magnesium [Nexium 24Hr] 40 mg PO DAILY 02/18/17 [Last Taken Unknown ] Ketoconazole [Nizoral Cream] 1 appl TP PRN 01/07/18 [Last Taken Unknown] - History of Present Illness Narrative: Patient complains of approximately one week of cough and shortness of breath. He states that he is coughing up some greenish like sputum over the past week. Patient denies any chest pain, diaphoresis or neck arm or jaw pain. Severity: moderate Initiating event: Reports: upper resp illness - he thinks Frequency of episodes: Reports: no prior episodes Modifying Factors - (Improves): Reports: nothing Modifying Factors (Worsens): Reports: activity Associated Symptoms-Dyspnea: Reports: cough Review of Systems - Review of Systems Constitutional: Present: See HPI EYE: Present: no symptoms reported ENT: Present: no symptoms reported Respiratory: Present: shortness of breath, cough Cardiology: Present: no symptoms reported Gastrointestinal/Abdominal: Present: no symptoms reported Genitourinary: Present: no symptoms reported Musculoskeletal: Present: no symptoms reported Skin: Present: no symptoms reported Neurological: Present: no symptoms reported Endocrine: Present: no symptoms reported Hematologic/Lymphatic: Present: no symptoms reported Psych: Present: no symptoms reported - Patient's Past Medical History Patient History - Medical: Chronic Pain, GERD, Renal Failure, Other Patient History - Cardiac/Respiratory: Hypertension Patient History - Cancer: Skin Patient History - Surgical Procedures: Appendectomy, Back Surgery, Cancer Surgery, Colonoscopy, EGD, Total Hip Replacement, Other Patient History - Other: None - Family History Mother Family History - Medical: , Arthritis, Diabetes Type 2, Liver Disease, Renal Disease Family History - Cardiac/Respiratory: Hypertension Family History - Cancer: No pertinent family hx Father Family History - Medical: Family History - Cardiac/Respiratory: No pertinent hx Family History - Cancer: No pertinent family hx - Social History Living Situations: home Abuse History: No History of abuse Psych History: Current tx/ever been on anti-depressants or anti-anxiety meds Smoking Status: Former smoker Have you smoked in the past 12 months: No Do you dip or chew tobacco: No Alcohol Use: none Drug Use: none - Immunizations Immunizations Up to Date: Yes Hx Pneumococcal Vaccination: Yes History of Influenza Vaccine: Yes Physical Exam - Physical Exam General Appearance: Present: wd/wn, alert, moderate distress Head Exam: Present: normal inspection, no evidence of injury Eye Exam: Normal inspection: bilateral, PERRL: bilateral Ears, Nose, Throat: Present: normal ENT inspection, H, normal pharynx Neck: Present: normal inspection, nontender Respiratory: Present: no accessory muscle use, chest nontender, wheezing Cardiovascular/Chest: Present: regular rate, rhythm, no murmur, normal peripheral pulses Gastrointestinal/Abdominal: Present: normal bowel sounds, nontender, nondistended, soft, no organomegaly Rectal Exam: Present: deferred Back Exam: Present: normal inspection, normal range of motion Extremity Exam: Present: normal inspection, non-tender, no edema, normal range of motion Neurological Exam: Present: alert, oriented, normal mood/affect Skin Exam: Present: normal color, warm/dry Lymphatic Exam: Present: no adenopathy ED Progress - Results and Orders Patient's Lab Results:: I have reviewed the patient's lab results. - Vital Signs Patient's Vital Signs:: I have reviewed the patient's vital signs. Vital Signs: Vital Signs 02/18/17 02/18/17 02/18/17 08:35 08:49 09:12 Temperature 37.0 C Pulse Rate 97 90 80 Respiratory 19 20 18 Rate Blood Pressure 142/71 144/69 O2 Sat by Pulse 97 93 97 Oximetry 02/18/17 09:31 Temperature Pulse Rate 104 H Respiratory Rate Blood Pressure O2 Sat by Pulse Oximetry - EKG EKG: NSR, other - PVCs - X-Ray X-Ray #1 X-Ray: chest Interpretation: Reviewed by me - Progress/Reassessment Chief Complaint: Dyspnea Plan - Plan Plan: I suspect the source for the dyspnea also related to the elevated troponin. Patient be admitted to the hospital for echocardiogram and given the patient's stage IV renal disease he would not be a candidate for a cardiac catheterization unless he was having an actual heart attack. Patient will be admitted to Dr. Lacey for an echocardiogram and possible non-treadmill stress test will be considered. Departure Clinical Impression: Intermediate coronary syndrome Dyspnea Qualifiers: Dyspnea type: shortness of breath Qualified Code(s): R06.02 - Shortness of breath; R06.00 - Dyspnea, unspecified; R06.01 - Orthopnea - Departure Disposition: [facility] Condition: Fair
[2017-02-18] MEDS ORDERED: ASPIRIN 325 MG TABLET.DR PO ONE (11:57)
[2017-02-18 18:48] LABS: TSH * 1.432 uIU/mL (0.358-3.74)
[2017-02-18 19:13] LABS: Troponin I 0.206 ng/ml (0.00-0.10)
[2017-02-18] MEDS ORDERED: DIAZEPAM 5 MG TABLET PO PRN (19:23)
[2017-02-18] MEDS ORDERED: AZELASTINE HCL 200 SPRAY INHALER NS PRN (19:23)
[2017-02-18] MEDS ORDERED: KETOCONAZOLE APPL TP PRN (19:30)
--- NOTE | 2017-02-18 19:47 | HP ---
Chief Complaint - Chief Complaint Date of Service: 02/18/17 Time of Service: 13:50 Chief Complaint: Shortness of breath History of Present Illness: The patient states that he first noticed he "couldn't breathe" approximately 1 month ago. He states his symptoms were fairly stable until the last 2 days when they started to worsen. Upon further questioning, the patient states that he has no shortness of breath at all when he is at rest but as soon as he exerts himself in the slightest bit he becomes short of breath. The patient states he has had a productive cough with "medium yellow" sputum. He denies any known sick contacts. He denies any fevers or chills. - Patient's Past Medical History Patient History - Medical: Chronic Pain, GERD, Renal Failure, Other Patient History - Cardiac/Respiratory: Hypertension Patient History - Cancer: Skin Patient History - Surgical Procedures: Appendectomy, Back Surgery, Cancer Surgery, Colonoscopy, EGD, Total Hip Replacement, Other Patient History - Other: None - Family History Mother Family History - Medical: , Arthritis, Diabetes Type 2, Liver Disease, Renal Disease Family History - Cardiac/Respiratory: Hypertension Family History - Cancer: No pertinent family hx Father Family History - Medical: Family History - Cardiac/Respiratory: No pertinent hx Family History - Cancer: No pertinent family hx - Social History Living Situations: alone Abuse History: No History of abuse Psych History: Current tx/ever been on anti-depressants or anti-anxiety meds Smoking Status: Former smoker Have you smoked in the past 12 months: No Do you dip or chew tobacco: No Alcohol Use: none Drug Use: none - Immunizations Immunizations Up to Date: Yes Hx Pneumococcal Vaccination: Yes History of Influenza Vaccine: Yes Review Of Systems (GEN) - Review of Systems Generalized/Overall Review: Present: Fatigue EENTM: Present: No Symptoms Reported Respiratory: Present: Cough, Shortness of Breath Cardiac: Present: No Symptoms Reported Abdominal: Present: No Symptoms Reported Genitourinary: Present: No Symptoms Reported Musculoskeletal: Present: No Symptoms Reported Neurological: Present: No Symptoms Reported Skin: Present: No Symptoms Reported Endocrine: Present: No Symptoms Reported Misc: All systems neg except as marked Immunizations: IMMUNIZATION HX Immunizations Up to Date Yes History of Influenza Vaccine Yes Hx Pneumococcal Vaccination Yes Allergies/Adverse Reactions: Allergies Allergy/AdvReac Type Severity Reaction Status Date / Time Penicillins Allergy Intermediate FEET Verified 02/18/17 08:42 SWELLING diltiazem AdvReac Severe significant Verified 02/18/17 08:42 bradycardia to the 30's Home Medications: HOME MEDICATIONS Diazepam [Valium] 5 mg PO DAILY PRN 04/10/13 [Last Taken Unknown] Sennosides [Senna] 2 tab PO HS PRN 04/10/13 [Last Taken Unknown] Azelastine HCl [Astepro Nasal [place]] 2 spray NS BID PRN 03/10/16 [Last Taken Unknown] Calcitriol 0.25 mcg PO DAILY 03/10/16 [Last Taken Unknown] Sucralfate [Carafate] 1 gm PO QID 03/10/16 [Last Taken Unknown] Pantoprazole Sodium [Protonix] 40 mg PO DAILY 12/13/16 [Last Taken Unknown] Albuterol Sulfate [Proair Hfa] 2 puff IH Q6H 01/26/17 [Last Taken Unknown] Atorvastatin Calcium [Lipitor] 80 mg PO HS 01/26/17 [Last Taken Unknown] Cholecalciferol (Vitamin D3) [Vitamin D] 1,000 unit PO DAILY 01/26/17 [Last Taken Unknown] Amlodipine Besylate [Norvasc] 2.5 mg PO DAILY 02/18/17 [Last Taken Unknown] Enalapril Maleate [Vasotec] 2.5 mg PO DAILY 02/18/17 [Last Taken Unknown] Esomeprazole Magnesium [Nexium 24Hr] 40 mg PO DAILY 02/18/17 [Last Taken Unknown ] Ipratropium [place] [Atrovent 0.06% Nasal [place]] 2 spray NS TID 02/18/17 [Last Taken Unknown] Ketoconazole [Nizoral Cream] 1 appl TP PRN 02/18/17 [Last Taken Unknown] Exam - Exam Vital Signs: Vital Signs - Last Taken Temp 36.4 C L 02/18/17 14:28 Pulse 79 02/18/17 16:09 Resp 16 02/18/17 14:28 BP 125/61 02/18/17 14:28 Pulse Ox 91 02/18/17 14:28 Constitutional: Present: Alert, Oriented x3, Cooperative, Well developed, No distress, Elderly ENT Exam: Present: hard of hearing, moist mucous membranes Eye Exam: bilateral eye: normal inspection, PERRL, EOMI Respiratory: Present: lungs clear, normal breath sounds, no respiratory distress , no accessory muscle use Cardiovascular/Chest: Present: regular rate, rhythm, no edema, no murmur Abdomen: Present: Normal bowel sounds, soft, nontender, nondistended Extremity: Present: normal inspection, no pedal edema Skin Exam: Present: warm/dry Neurologic: Present: alert, normal mood/affect, oriented x 3 Appearance: Present: appropriate appearance, appropriate insight Eye contact: Present: cooperative, good eye contact, normal speech Thoughts: Present: normal thought pattern, no apparent hallucination Diagnostic Studies: Abnormal Lab Results 02/18/17 02/18/17 Range/Units 13:03 18:22 Troponin I 0.275 H* 0.206 H* (0.00-0.10) ng/ml B-Natriuretic Peptide 6178 H (5-650) pg/mL Laboratory Results WBC 10.3 K/mm3 (4.0-10.5) 02/18/17 08:50 RBC 4.54 M/mm3 (4.7-6.0) L 02/18/17 08:50 Hgb 14.8 gm/dL (13.5-18.0) 02/18/17 08:50 Hct 44.8 % (42.0-52.0) 02/18/17 08:50 MCV 98.7 fl (78-100) 02/18/17 08:50 MCH 32.6 pg (27-31) H 02/18/17 08:50 MCHC 33.0 g/dl (32-36) 02/18/17 08:50 RDW 18.0 % (11.5-14.0) H 02/18/17 08:50 Plt Count 197 K/mm3 (150-450) 02/18/17 08:50 MPV 10.5 fl (6.0-9.5) H 02/18/17 08:50 Immature Gran % (Auto) 0.40 % (0.001-0.429) 02/18/17 08:50 Immature Gran # (Auto) 0.04 K/mm3 (0.000-0.0310) H 02/18/17 08:50 Neutrophils % 73.7 % (42-75.0) 02/18/17 08:50 Lymphocytes % 11.4 % (20-51) L 02/18/17 08:50 Monocytes % 6.1 % (0.0-9) 02/18/17 08:50 Eosinophils % 7.5 % (0.0-3.0) H 02/18/17 08:50 Basophils % 0.9 % (0.0-1.0) 02/18/17 08:50 Nucleated RBC % 0.0 k/mm3 (0-1) 02/18/17 08:50 Neutrophils # 7.6 K/mm3 (1.3-6.0) H 02/18/17 08:50 Lymphocytes # 1.2 k/mm3 (1.5-3.5) L 02/18/17 08:50 Monocytes # 0.6 k/mm3 (0.0-1.0) 02/18/17 08:50 Eosinophils # 0.8 k/mm3 (0.0-0.7) H 02/18/17 08:50 Absolute Basophils 0.1 k/mm3 (0.0-0.1) 02/18/17 08:50 Sodium 143 mmol/L (132-142) H 02/18/17 08:50 Plasma Sodium 144 mmol/L (130-142) H 02/18/17 08:50 Potassium 3.6 mmol/L (3.4-4.6) 02/18/17 08:50 Chloride 108 mmol/L (97-106) H 02/18/17 08:50 Carbon Dioxide 23.6 mmol/L (24-32.6) L 02/18/17 08:50 Anion Gap 15.0 mmol/L (6.8-13.8) H 02/18/17 08:50 BUN 41 mg/dL (6-23) H D 02/18/17 08:50 Creatinine 3.39 mg/dL (0.4-1.4) H D 02/18/17 08:50 Est GFR (Non-Af Amer) 19 mL/min (60-130) L 02/18/17 08:50 BUN/Creatinine Ratio 12.1 (9.0-21.6) 02/18/17 08:50 Random Glucose 157 mg/dL (70-110) H 02/18/17 08:50 Calcium 8.9 mg/dL (7.9-10.9) 02/18/17 08:50 Calcium Adj for Albumin 9.2 mg/dL (8.4-10.2) 02/18/17 08:50 Magnesium 1.6 mg/dL (1.2-2.8) 02/18/17 08:50 Total Bilirubin 1.3 mg/dL (0.0-1.1) H 02/18/17 08:50 AST 28 U/L (0-48) 02/18/17 08:50 ALT 24 U/L (19-67) 02/18/17 08:50 Alkaline Phosphatase 91 U/L (50-170) 02/18/17 08:50 Troponin I 0.206 ng/ml (0.00-0.10) H* 02/18/17 18:22 B-Natriuretic Peptide 6178 pg/mL (5-650) H 02/18/17 18:22 Total Protein 7.1 gm/dL (6.2-8.2) 02/18/17 08:50 Albumin 3.2 gm/dl (3.4-5.0) L 02/18/17 08:50 TSH 1.432 uIU/mL (0.358-3.74) 02/18/17 18:22 Assessment/Plan - Narrative Narrative: The differential diagnosis for the patient's dyspnea on exertion include ACS vs. PE vs. COPD vs. CHF. Give Aspirin 325mg X 1 NOW. We will trend troponins. Monitor on telemetry. Repeat EKG in AM. No reason to order a d-dimer as it will already be elevated just due to the patient's CKD. Cannot give contrast secondary to the patient's CKD so we will obtain a VQ scan in the AM to make sure we rule out PE as etiology. CXR without signs of CHF but concern for ACS and possible wall motion abnormalities so we will get a echocardiogram in the AM. Check BNP. Check TSH. Continue home medications without changes at this time. Check fasting lipid panel in AM. - Assessment/Plan (1) Dyspnea on exertion Problem: Acute
[2017-02-18] MEDS ORDERED: SENNOSIDES 8.6 MG TABLET PO PRN (20:00)
[2017-02-18] MEDS: ATORVASTATIN CALCIUM 40 MG TABLET PO SCH (20:56)
[2017-02-18] MEDS: SUCRALFATE 1 G TABLET PO SCH (20:57)
[2017-02-19 06:06] LABS: Hemoglobin A1C 5.9 % (4.00-6.0)
[2017-02-19 06:19] LABS: Albumin * 2.8 gm/dl (3.4-5.0); Anion Gap 12.6 mmol/L (6.8-13.8); BUN/Creatinine Ratio 14.4 (9.0-21.6); Bilirubin, Total 0.7 mg/dL (0.0-1.1); Ca. Corrected For Albumin 9.5 mg/dL (8.4-10.2); Calcium * 8.9 mg/dL (7.9-10.9); Carbon Dioxide 22.1 mmol/L (24-32.6); Chol/HDL Risk Ratio 2.2 mg/dL (3.3-5.0); Potassium 4.7 mmol/L (3.4-4.6); Total Protein 6.4 gm/dL (6.2-8.2)
[2017-02-19] MEDS: PANTOPRAZOLE SODIUM 40 MG TABLET.EC PO SCH (06:19)
[2017-02-19 06:23] LABS: Troponin I 0.169 ng/ml (0.00-0.10)
[2017-02-19] MEDS: SUCRALFATE 1 G TABLET PO SCH ×4 (08:07→21:06)
[2017-02-19] MEDS: CALCITRIOL 0.25 MCG CAPSULE PO SCH (08:08)
[2017-02-19] MEDS: CHOLECALCIFEROL 1,000 UNIT CAPSULE PO SCH (08:08)
[2017-02-19] MEDS: amLODIPine BESYLATE 5 MG TABLET PO SCH (08:08)
--- NOTE | 2017-02-19 13:51 | DS ---
(1) Dyspnea on exertion Problem: Acute (2) Pulmonary embolism Problem: Ruled-out (3) COPD (chronic obstructive pulmonary disease) Problem: Chronic (4) ACS (acute coronary syndrome) Problem: Suspected (5) CHF (congestive heart failure) Problem: Suspected Description of Stay: ADMISSION DATE: 02/18/2017 DISCHARGE DATE: 02/19/2017 ADMISSION HPI: The patient states that he first noticed he "couldn't breathe" approximately 1 month ago. He states his symptoms were fairly stable until the last 2 days when they started to worsen. Upon further questioning, the patient states that he has no shortness of breath at all when he is at rest but as soon as he exerts himself in the slightest bit he becomes short of breath. The patient states he has had a productive cough with "medium yellow" sputum. He denies any known sick contacts. He denies any fevers or chills. HOSPITAL COURSE: The differential diagnosis for the patient's presentation with dyspnea on exertion includes ACS vs. PE vs. COPD vs. CHF. The patients troponin level continued to decline over his hospitalization. He was monitored on telemetry which was unremarkable. The patients EKG showed sinus rhythm with frequent supraventricular premature complexes and nonspecific ST & T-wave abnormality. I did not feel there was any reason to order a d-dimer as it would already be elevated just due to the patient's CKD and due to the patients EKG were unable to give him IV contrast so we obtained a VQ scan which revealed low probability for a PE. His CXR on admission was without signs of CHF but there was concern for ACS so an echocardiogram was obtained to look for any wall motion abnormalities or other potential abnormalities and I have outlined the findings from the echocardiogram below under radiology reports. At the time of discharge, is still not completely clear whether the patients dyspnea on exertion is secondary to cardiac or pulmonary or possibly even a combination of both. The patient qualified for home oxygen and was discharged home in stable condition and instructed to use 1-2 L by nasal cannula. He was also instructed to follow-up with his primary care physician within one week. I ordered PFTs for the patient to complete as an outpatient so we can further evaluate his pulmonary status. I would also recommend consideration for cardiology referral on an outpatient basis if this is felt necessary. FOLLOW-UP APPOINTMENTS: -Follow-up with PCP within 1 week -Complete PFTs as an outpatient NEW OR CHANGED MEDICATIONS: -Aspirin 325mg PO daily DISCONTINUED MEDICATIONS: None RADIOLOGY REPORTS: PA and lateral chest x-ray on 02/18/2017: No acute cardiopulmonary abnormality identified. Nuclear medicine ventilation/perfusion scan on 02/19/2017: Negative/low probability scan for pulmonary embolism. Echocardiogram on 02/19/2017: Left ventricle: Normal size. Mild concentric LVH. Hyperdynamic. Ejection fraction is normal at 69%. Wall motion is normal. Right ventricle: Borderline right ventricular enlargement. Atria: Left atrium mildly dilated. Right atrial size is normal. Mitral valve: Possible diastolic dysfunction. No prolapse. No stenosis. No regurgitation. Tricuspid valve: No stenosis. Trace regurgitation. Pulmonary hypertension. Right ventricular systolic pressure is elevated at 43 mmHg. Aortic valve: Opens well. No hemodynamically significant valvular stenosis. No regurgitation. Pulmonic valve: No stenosis. Trace regurgitation. Great vessels: The inferior vena cava, superior vena cava, and hepatic veins are normal. Pericardium/pleural: No pericardial effusion. Procedures Performed: none Results and Findings: Laboratory Tests 02/18/17 02/18/17 02/18/17 08:50 13:03 18:22 Mean Blood Glucose Hemoglobin A1c Calcium Calcium Adj for Albumin Magnesium 1.6 Total Bilirubin AST ALT Alkaline Phosphatase Troponin I 0.295 H* 0.275 H* 0.206 H* B-Natriuretic Peptide 6178 H Total Protein Albumin Triglycerides Cholesterol LDL Cholesterol VLDL Cholesterol HDL Cholesterol Cholesterol/HDL Ratio TSH 1.432 02/19/17 02/19/17 05:25 05:25 Mean Blood Glucose 110 Hemoglobin A1c 5.9 Calcium 8.9 Calcium Adj for Albumin 9.5 Magnesium Total Bilirubin 0.7 AST 21 ALT 20 Alkaline Phosphatase 79 Troponin I 0.169 H* B-Natriuretic Peptide 4903 H Total Protein 6.4 Albumin 2.8 L Triglycerides 72 Cholesterol 84 LDL Cholesterol 33 L VLDL Cholesterol 14 HDL Cholesterol 37 L Cholesterol/HDL Ratio 2.2 L TSH Discharge Disposition: Home w/home health care Disposition: Home self-care Condition: Stable Discharge Activity: Activity as tolerated Discharge Diet: Low salt, Low fat/chol Referrals: Pedro Paz MD [Primary Care Provider] - Problem Oriented Discharge Instructions to Patient/Family: Chronic Obstructive Pulmonary Disease Exacerbation, [id number] Additional Patient Instructions (free text): Follow up with Dr. Lacey on March 01 at 0915. Please fax orders and discharge to [facility]. Complete Pulmonary Function Tests as an outpatient on February 28 at 10 pm. Prescriptions (Any new or edited meds): Aspirin 325 mg PO DAILY #30 tablet Complete Home Medications List: Complete Home Medication List: Diazepam [Valium] 5 mg PO DAILY PRN 04/10/13 Sennosides [Senna] 2 tab PO HS PRN 04/10/13 Azelastine HCl [Astepro Nasal [place]] 2 spray NS BID PRN 03/10/16 Calcitriol 0.25 mcg PO DAILY 03/10/16 Sucralfate [Carafate] 1 gm PO QID 03/10/16 Pantoprazole Sodium [Protonix] 40 mg PO DAILY 12/13/16 Albuterol Sulfate [Proair Hfa] 2 puff IH Q6H 01/26/17 Atorvastatin Calcium [Lipitor] 80 mg PO HS 01/26/17 Cholecalciferol (Vitamin D3) [Vitamin D3] 1,000 unit PO DAILY 01/26/17 Amlodipine Besylate [Norvasc] 2.5 mg PO DAILY 02/18/17 Enalapril Maleate [Vasotec] 2.5 mg PO DAILY 02/18/17 Ipratropium [place] [Atrovent 0.06% Nasal [place]] 2 spray NS TID 02/18/17 Ketoconazole [Nizoral Cream] 1 appl TP PRN 02/18/17 Aspirin 325 mg PO DAILY #30 tablet 02/19/17 Amb Orders for Discharge: PFT Complete Location: Determined By Patient
[2017-02-19] MEDS: ATORVASTATIN CALCIUM 40 MG TABLET PO SCH (21:06)
[2017-02-20 06:04] LABS: Anion Gap 13.9 mmol/L (6.8-13.8); BUN/Creatinine Ratio 17.3 (9.0-21.6); Calcium * 9.3 mg/dL (7.9-10.9); Carbon Dioxide 22.2 mmol/L (24-32.6); Estimated Creat Clear 20.2; Potassium 4.1 mmol/L (3.4-4.6)
[2017-02-20] MEDS: PANTOPRAZOLE SODIUM 40 MG TABLET.EC PO SCH (06:25)
[2017-02-20] MEDS: amLODIPine BESYLATE 5 MG TABLET PO SCH (08:06)
[2017-02-20] MEDS: CHOLECALCIFEROL 1,000 UNIT CAPSULE PO SCH (08:06)
[2017-02-20] MEDS: SUCRALFATE 1 G TABLET PO SCH (08:06)
[2017-02-20] MEDS: CALCITRIOL 0.25 MCG CAPSULE PO SCH (08:06)
[2017-02-20 10:29] VITALS: BP 145/71
--- NOTE | 2017-02-20 15:37 | ECHO ---
This report is available in the EMR
--- NOTE | 2017-02-28 07:29 | PN ---
Subjective - Date and Time Seen Date: 02/19/17 Time: 09:00 Subjective Narrative: Patient seen and examined at bedside. No acute issues overnight. Patient states his breathing is about the same as yesterday, maybe slightly better. Objective - Review of Systems Generalized/Overall Review: Reports: Fatigue EENTM: Reports: No Symptoms Reported Respiratory: Reports: Cough, Shortness of Breath Cardiac: Reports: No Symptoms Reported Abdominal: Reports: No Symptoms Reported Genitourinary Symptoms: Reports: No Symptoms Reported Musculoskeletal Complaints: Reports: No Symptoms Reported Neurological: Reports: No Symptoms Reported Skin: Reports: No Symptoms Reported Endocrine: Reports: No Symptoms Reported Misc: All systems neg except as marked - Vitals Vitals: Last Vital Signs Temp 36.4 C L 02/20/17 10:28 Pulse 72 02/20/17 10:28 Resp 20 02/20/17 10:28 BP 145/71 02/20/17 10:28 Pulse Ox 93 02/20/17 10:28 - Exam Constitutional: Present: Alert, Oriented x3, Cooperative, No distress, Elderly ENT Exam: Present: hard of hearing, moist mucous membranes Respiratory: Present: lungs clear, normal breath sounds, no respiratory distress , no accessory muscle use Cardiovascular/Chest: Present: regular rate, rhythm, no murmur Abdomen: Present: soft, nontender, nondistended Extremity: Present: non-tender, normal inspection Skin Exam: Present: warm/dry Neurologic: Present: alert, normal mood/affect, oriented x 3 Appearance: Present: appropriate appearance, appropriate insight Eye contact: Present: cooperative, good eye contact, normal speech Thoughts: Present: normal thought pattern, no apparent hallucination Assessment/Plan Plan Narrative: 2D echo and VQ scan planned for today. Await results. Possible discharge home later today depending on the results of these tests. Home oxygen evaluation ordered. - Problems/Diagnosis (1) Dyspnea on exertion Problem: Acute (2) Pulmonary embolism Problem: Suspected (3) COPD (chronic obstructive pulmonary disease) Problem: Chronic (4) ACS (acute coronary syndrome) Problem: Suspected (5) CHF (congestive heart failure) Problem: Suspected
== END 2017-02-20 12:21 | disposition home or self-care (01) ==
LOC: ER 08:24 → MS 10:13
PROVIDERS: ADMIT Internal Medicine; ATTEND Internal Medicine
DX: I24.9 Acute ischemic heart disease, unspecified (principal); E78.5 Hyperlipidemia, unspecified; I12.9 Hypertensive chronic kidney disease with stage 1 through stage 4 chronic kidney disease, or unspecified chronic kidney disease; N18.4 Chronic kidney disease, stage 4 (severe); Z87.891 Personal history of nicotine dependence; J44.9 Chronic obstructive pulmonary disease, unspecified; Z68.24 Body mass index [BMI] 24.0-24.9, adult
CPT/HCPCS: 36415; 71046; 78582; 80048; 80053; 80061; 83036; 83735; 83880; 84443; 84484; 85025; 93005; 93306; 94640; 97116; 97161; 99284; A9539; A9540; G0378; G8978; G8979; G8980

== ENCOUNTER 2017-11-20 17:22 | Inpatient (IN) | payer MEDICARE, OTHER ==
--- NOTE | 2017-11-20 17:57 | ERNOTE ---
Medical Problem HPI - Narrative Date of Service: 11/20/17 - General Chief Complaint: General Assessment Time Seen by Provider: 11/20/17 17:42 Source: patient, family, RN notes reviewed, old records Exam Limitations: no limitations - Immun/Allergies/Home Medications Immunizations: IMMUNIZATION HX Immunizations Up to Date Yes History of Influenza Vaccine Yes Hx Pneumococcal Vaccination Yes Allergies/Adverse Reactions: Allergies Penicillins Allergy (Intermediate, Verified 11/20/17 17:38) FEET SWELLING diltiazem Adverse Reaction (Severe, Verified 11/20/17 17:38) significant bradycardia to the 30's patient was also on a beta brian at the time Home Medications: HOME MEDICATIONS Sennosides [Senna] 2 tab PO HS PRN 04/10/13 [Last Taken Unknown] Calcitriol 0.25 mcg PO DAILY 03/10/16 [Last Taken Unknown] Albuterol Sulfate [Proair Hfa] 2 puff IH Q6H PRN 01/26/17 [Last Taken Unknown] Atorvastatin Calcium [Lipitor] 80 mg PO HS 01/26/17 [Last Taken Unknown] azelastine 0.15 % (205.5 mcg) nasal spray 2 spray LON BID 09/07/17 [Last Taken Unknown] esomeprazole magnesium 40 mg capsule,delayed release 40 mg PO DAILY 09/07/17 [Last Taken Unknown] ipratropium bromide 42 mcg (0.06 %) nasal spray 2 spray LON QID ml 09/07/17 [Last Taken Unknown] ketoconazole 2 % shampoo 1 applic TP 2XW 09/07/17 [Last Taken Unknown] levothyroxine 50 mcg tablet 25 mcg PO DAILY tab 09/07/17 [Last Taken Unknown] nortriptyline 25 mg capsule 25 mg PO HS 09/07/17 [Last Taken Unknown] diazepam 5 mg tablet 5 mg PO DAILY PRN #30 tab 10/16/17 [Last Taken Unknown] pantoprazole 40 mg tablet,delayed release 40 mg PO DAILY #30 tab 10/16/17 [Last Taken Unknown] flu vaccine (65yr up)(PF) 180 mcg/0.5 mL intramuscular syringe 0.5 ml IM ONCE #0.5 ml 11/14/17 [Last Taken Unknown] - History of Present History Narrative: Felipe is a 82 year old male who presents to the ED for episodes of near syncope and weakness that have been going on for over a month. He reports that when he ambulates just a short distance his legs become weak and give out on him. He denies falling or losing consciousness, but he does live at home alone. He saw his doctor last week. His home oxygen was increased from 2 to 3 liters and he was put on Zithromax. He has continued to have a productive cough and his activity tolerance has not improved. Timing: getting worse Review of Systems - Review of Systems Constitutional: Present: weakness, fatigue, malaise, decreased activity level EYE: Present: no symptoms reported ENT: Absent: nose congestion, sore throat Respiratory: Present: shortness of breath, cough. Absent: wheezing Cardiology: Absent: chest pain, edema Gastrointestinal/Abdominal: Absent: vomiting, diarrhea, eating less Genitourinary: Absent: dysuria, decreased urinary output Musculoskeletal: Present: no symptoms reported Skin: Absent: rash, lesions Neurological: Present: dizziness/light-headedness. Absent: headache Endocrine: Present: no symptoms reported Hematologic/Lymphatic: Present: easy bruising, easy bleeding Psych: Absent: anxiety, depressed Medical History (Last Reviewed 11/20/17 @ 18:23 by Camelia Prado RN) Abnormal liver function tests Onset Date: Unknown Arthralgia Onset Date: Unknown COPD (chronic obstructive pulmonary disease) Onset Date: 09/05/16 Chronic gastritis Onset Date: Unknown Chronic kidney disease (CKD) Onset Date: 04/07/16 Chronic pain syndrome Onset Date: 01/23/15 Dizziness Onset Date: 11/24/13 Elevated PSA Onset Date: Unknown Elevated serum creatinine Onset Date: Unknown Esophageal spasm Onset Date: 01/19/15 Essential hypertension Onset Date: 03/06/13 GERD (gastroesophageal reflux disease) Onset Date: Unknown Gait difficulty Onset Date: Unknown Hyperkalemia Onset Date: Unknown Lumbar spinal stenosis Onset Date: Unknown Osteoarthritis Onset Date: Unknown Painful joint Onset Date: Unknown Tachycardia Onset Date: 11/24/13 Tobacco abuse Onset Date: 04/07/16 Chronic rhinitis Onset Date: 02/11/16 Claudication of right lower extremity Onset Date: 04/07/16 Hepatitis Onset Date: Unknown PVD (peripheral vascular disease) Onset Date: Unknown Peptic ulcer Onset Date: Unknown Rhinitis Onset Date: 09/05/16 Surgical History: Surgical History (Last Reviewed 11/20/17 @ 18:23 by Camelia Prado RN) H/O colonoscopy Onset Date: ~2009 H/O cystoscopy Onset Date: 08/21/07 H/O thumb surgery Onset Date: Unknown H/O toe surgery Onset Date: Unknown History of Mike fundoplication Onset Date: ~1975 History of appendectomy Onset Date: ~1953 History of arthroplasty of right hip Onset Date: 07/23/13 History of esophagogastroduodenoscopy (EGD) Onset Date: ~03/13/16 History of lumbar spinal fusion Onset Date: ~2011 History of total hip replacement Onset Date: ~10/2013 Previous back surgery Onset Date: ~09/2011 S/P epidural steroid injection Onset Date: 10/31/16 Status post surgical removal of malignant neoplasm of skin Onset Date: Unknown Family History: Family History (Last Reviewed 11/20/17 @ 18:24 by Camelia Prado RN) Brother Diabetes Father No problems noted. Mother Arthritis Diabetes Hypertension Kidney disease Liver disease Sister Alive and well Cancer Social History: Preferred Language Faroese Abuse History No History of abuse Psych History Hx of Depression,Currently on Meds Alcohol Use none Drug Use none Physical Exam - Physical Exam General Appearance: Present: wd/wn, alert, mild distress Head Exam: Present: normal inspection, no evidence of injury Eye Exam: Normal inspection: bilateral Ears, Nose, Throat: Present: normal ENT inspection, normal pharynx Neck: Present: normal inspection, nontender, supple Respiratory: Present: accessory muscle use - Mild dyspnea at rest, decreased breath sounds, expiration (prolonged) Cardiovascular/Chest: Present: normal peripheral pulses, tachycardia Gastrointestinal/Abdominal: Present: nontender, nondistended, soft Extremity Exam: Present: normal inspection, non-tender, no edema Neurological Exam: Present: alert, oriented, normal mood/affect, no motor/sensory deficits Skin Exam: Present: warm/dry, pallor ED Progress - Results and Orders Patient's Lab Results:: I have reviewed the patient's lab results. - Vital Signs Patient's Vital Signs:: I have reviewed the patient's vital signs. Vital Signs: Vital Signs 11/20/17 17:29 Temperature 36.8 C Pulse Rate 106 H Respiratory Rate 25 H Blood Pressure 112/79 O2 Sat by Pulse Oximetry 91 L - EKG EKG: NSR EKG read: Reviewed by me - X-Ray X-Ray #1 X-Ray: chest - Progress/Reassessment Chief Complaint: General Assessment Progress:: Unchanged Progress Note-Subjective: 11/20/17 19:21 Patient stood at bedside to void with O2 at 3 liters. He is obviously dyspneic with minimal exertion. Oxygen saturation dropped into 70's while standing. Recovered after getting back in bed and resting. As the patient has not improved with outpatient treatment and has significant hypoxia, Dr. Castillo was contacte d for admission. The patient will be started on IV Levaquin and SoluMedrol. Departure Clinical Impression: COPD exacerbation, Hypoxia, Failure of outpatient treatment - Departure Disposition: Still a patient Condition: Serious Referrals: Dorita Lacey DO [Primary Care Provider] -
[2017-11-20 18:14] LABS: Hematocrit 49.6 % (42.0-52.0); Hemoglobin 16.1 gm/dL (13.5-18.0); Mean Cell Volume 92.9 fl (78-100); Mean Corpuscular Hemoglobin 30.1 pg (27-31); Mean Corpuscular Hgb Conc 32.5 g/dl (32-36); Mean Platelet Volume 10.2 fl (8-11.3); Neutrophil # 7.2 K/mm3 (1.3-6.0); Neutrophil % 67.8 % (42-75.0); Platelet Count 269 K/mm3 (150-450); Red Blood Count 5.34 M/mm3 (4.7-6.0); Red Cell Distribution Width 15.9 % (11.5-14.0); White Blood Count 10.7 K/mm3 (4.0-10.5)
[2017-11-20 18:32] LABS: Albumin * 3.3 gm/dl (3.4-5.0); Anion Gap 13.1 mmol/L (6.8-13.8); BUN/Creatinine Ratio 12.4 (9.0-21.6); Bilirubin, Total 0.4 mg/dL (0.0-1.1); Ca. Corrected For Albumin 9.5 mg/dL (8.4-10.2); Calcium * 9.3 mg/dL (7.9-10.9); Carbon Dioxide 23.7 mmol/L (24-32.6); Potassium 4.8 mmol/L (3.4-4.6); Total Protein 7.6 gm/dL (6.2-8.2)
[2017-11-20 19:10] LABS: Urine Bilirubin Negative (NEGATIVE); Urine Blood Negative /ul (NEGATIVE); Urine Ketone Negative (NEGATIVE); Urine Nitrite Negative (NEGATIVE); Urine Protein 30 mg/dL (NEGATIVE); Urine Specific Gravity 1.025 SP.GR. (1.005-1.030); Urine Urobilinogen Normal (NORMAL); Urine pH 5.5 pH (5.0-7.0)
[2017-11-20] MEDS ORDERED: METHYLPREDNISOLONE SOD SUCC/PF 125 MG/2 ML VIAL IV ONE (19:28)
[2017-11-20] MEDS ORDERED: NORMAL SALINE 1,000 ML IV ONE (19:28)
[2017-11-20 19:29] LABS: Urine Appearance Clear (CLEAR); Urine Color Yellow
[2017-11-20] MEDS ORDERED: LEVOFLOXACIN IN DEXTROSE 5 % 750 MG/150 ML BAG IV ONE (19:29)
[2017-11-20 19:30] LABS: Urine Bacteria TRACE; Urine RBC None Seen /hpf (0-5); Urine WBC None Seen /hpf (0-5)
[2017-11-20] MEDS ORDERED: METHYLPREDNISOLONE SOD SUCC/PF 125 MG/2 ML VIAL ONE (19:30)
--- NOTE | 2017-11-20 21:10 | HP ---
Chief Complaint - Chief Complaint Date of Service: 11/20/17 Time of Service: 21:06 Chief Complaint: weakness, near syncope History of Present Illness: Felipe Quach, is an 82-year-old white male, patient of Dr. Lacey, with previous medical history of COPD, chronic renal failure stage IV, peripheral vascular disease, who was admitted on 11/20/2017 because of weakness and near syncopal episodes. The patient said that he has been having cough productive initially of whitish phlegm for the last few weeks and lately more yellowish in color associated with occasional wheezing. . He also has been having weakness for the last month and a sensation of almost passing out with exertion. He was seen in the clinic last week and was given azithromycin and his oxygen was increased by [address] Dahl. He did not get better and went to the emergency room today. In the emergency room, his oxygen saturation dropped down to the low 70s with exertion. He was then admitted for further evaluation and treatment. Medical History (Last Reviewed 11/20/17 @ 21:43 by Mikki Lima RN) Abnormal liver function tests Onset Date: Unknown Arthralgia Onset Date: Unknown COPD (chronic obstructive pulmonary disease) Onset Date: 09/05/16 Chronic gastritis Onset Date: Unknown Chronic kidney disease (CKD) Onset Date: 04/07/16 Chronic pain syndrome Onset Date: 01/23/15 Dizziness Onset Date: 11/24/13 Elevated PSA Onset Date: Unknown Elevated serum creatinine Onset Date: Unknown Esophageal spasm Onset Date: 01/19/15 Essential hypertension Onset Date: 03/06/13 GERD (gastroesophageal reflux disease) Onset Date: Unknown Gait difficulty Onset Date: Unknown Hyperkalemia Onset Date: Unknown Lumbar spinal stenosis Onset Date: Unknown Osteoarthritis Onset Date: Unknown Painful joint Onset Date: Unknown Tachycardia Onset Date: 11/24/13 Tobacco abuse Onset Date: 04/07/16 Chronic rhinitis Onset Date: 02/11/16 Claudication of right lower extremity Onset Date: 04/07/16 Hepatitis Onset Date: Unknown PVD (peripheral vascular disease) Onset Date: Unknown Peptic ulcer Onset Date: Unknown Rhinitis Onset Date: 09/05/16 Surgical History: Surgical History (Last Reviewed 11/20/17 @ 21:43 by Mikki Lima RN) H/O colonoscopy Onset Date: ~2009 H/O cystoscopy Onset Date: 08/21/07 H/O thumb surgery Onset Date: Unknown H/O toe surgery Onset Date: Unknown History of Mike fundoplication Onset Date: ~1975 History of appendectomy Onset Date: ~1953 History of arthroplasty of right hip Onset Date: 07/23/13 History of esophagogastroduodenoscopy (EGD) Onset Date: ~03/13/16 History of lumbar spinal fusion Onset Date: ~2011 History of total hip replacement Onset Date: ~10/2013 Previous back surgery Onset Date: ~09/2011 S/P epidural steroid injection Onset Date: 10/31/16 Status post surgical removal of malignant neoplasm of skin Onset Date: Unknown Family History: Family History (Last Reviewed 11/20/17 @ 18:24 by Camelia Prado RN) Brother Diabetes Father No problems noted. Mother Arthritis Diabetes Hypertension Kidney disease Liver disease Sister Alive and well Cancer Social History: Preferred Language Sen[place]alese Abuse History No History of abuse Psych History Hx of Depression,Currently on Meds Alcohol Use none Drug Use none Review Of Systems (GEN) - Review of Systems Generalized/Overall Review: Present: Weakness. Absent: Chills, Fever Respiratory: Present: Cough, Shortness of Breath, Wheezing. Absent: Orthopnea Cardiac: Absent: Chest Pain, Edema, Palpitations Abdominal: Absent: Nausea, Vomiting Genitourinary: Absent: Urgency, Frequency Immunizations: IMMUNIZATION HX Immunizations Up to Date Yes History of Influenza Vaccine Yes Hx Pneumococcal Vaccination Yes Allergies/Adverse Reactions: Allergies Allergy/AdvReac Type Severity Reaction Status Date / Time Penicillins Allergy Intermediate FEET Verified 11/20/17 17:38 SWELLING diltiazem AdvReac Severe significant Verified 11/20/17 17:38 bradycardia to the 30's Home Medications: HOME MEDICATIONS Sennosides [Senna] 2 tab PO HS PRN 04/10/13 [Last Taken Unknown] Albuterol Sulfate [Proair Hfa] 2 puff IH Q6H PRN 01/26/17 [Last Taken Unknown] Atorvastatin Calcium [Lipitor] 80 mg PO HS 01/26/17 [Last Taken 11/19/17 21:00] azelastine 0.15 % (205.5 mcg) nasal spray 2 spray LON BID 09/07/17 [Last Taken 11/20/17 09:00] esomeprazole magnesium 40 mg capsule,delayed release 40 mg PO DAILY PRN 09/07/17 [Last Taken 11/18/17 22:00] ipratropium bromide 42 mcg (0.06 %) nasal spray 2 spray LON QID ml 09/07/17 [Last Taken 11/20/17] ketoconazole 2 % shampoo 1 applic TP 2XW 09/07/17 [Last Taken Unknown] levothyroxine 50 mcg tablet 25 mcg PO DAILY tab 09/07/17 [Last Taken 11/20/17 09:00] nortriptyline 25 mg capsule 25 mg PO HS PRN 09/07/17 [Last Taken 11/18/17] diazepam 5 mg tablet 5 mg PO DAILY PRN #30 tab 10/16/17 [Last Taken 11/19/17 21:00] pantoprazole 40 mg tablet,delayed release 40 mg PO DAILY #30 tab 10/16/17 [Last Taken 11/20/17 09:00] flu vaccine [id number](65yr up)(PF) 180 mcg/0.5 mL intramuscular syringe 0.5 ml IM ONCE #0.5 ml 11/14/17 [Last Taken Unknown] Exam - Exam Vital Signs: Vital Signs - Last Taken Temp 36.8 C 11/20/17 17:29 Pulse 63 11/20/17 19:51 Resp 16 11/20/17 19:51 BP 137/74 11/20/17 19:51 Pulse Ox 94 11/20/17 19:51 Constitutional: Present: Alert, Oriented x3, Cooperative, Elderly ENT Exam: Present: hearing grossly normal Eye Exam: bilateral eye: normal inspection, PERRL, EOMI Neck: Present: supple Respiratory: Present: decreased breath sounds, No rales, No wheezing Cardiovascular/Chest: Present: regular rate, rhythm, no JVD, no murmur Abdomen: Present: Normal bowel sounds, soft, nontender, nondistended Extremity: Present: no pedal edema, no calf tenderness Diagnostic Studies: Abnormal Lab Results 11/20/17 11/20/17 11/20/17 Range/Units 18:08 18:08 19:00 WBC 10.7 H (4.0-10.5) K/mm3 RDW 15.9 H (11.5-14.0) % Immature Gran % (Auto) 0.50 H (0.001-0.429) % Immature Gran # (Auto) 0.05 H (0.000-0.0310) K/mm3 Lymphocytes % 16.8 L (20-51) % Eosinophils % 7.2 H (0.0-3.0) % Neutrophils # 7.2 H (1.3-6.0) K/mm3 Eosinophils # 0.8 H (0.0-0.7) k/mm3 Potassium 4.8 H (3.4-4.6) mmol/L Carbon Dioxide 23.7 L (24-32.6) mmol/L BUN 32 H (6-23) mg/dL Creatinine 2.59 H (0.4-1.4) mg/dL Est GFR (Non-Af Amer) 25 L (60-130) mL/min Random Glucose 111 H (70-110) mg/dL ALT 18 L (19-67) U/L B-Natriuretic Peptide 4471 H (5-650) pg/mL Albumin 3.3 L (3.4-5.0) gm/dl Urine Protein 30 H (NEGATIVE) mg/dL Laboratory Results WBC 10.7 K/mm3 (4.0-10.5) H 11/20/17 18:08 RBC 5.34 M/mm3 (4.7-6.0) 11/20/17 18:08 Hgb 16.1 gm/dL (13.5-18.0) 11/20/17 18:08 Hct 49.6 % (42.0-52.0) 11/20/17 18:08 MCV 92.9 fl (78-100) 11/20/17 18:08 MCH 30.1 pg (27-31) 11/20/17 18:08 MCHC 32.5 g/dl (32-36) 11/20/17 18:08 RDW 15.9 % (11.5-14.0) H 11/20/17 18:08 Plt Count 269 K/mm3 (150-450) 11/20/17 18:08 MPV 10.2 fl (8-11.3) 11/20/17 18:08 Immature Gran % (Auto) 0.50 % (0.001-0.429) H 11/20/17 18:08 Immature Gran # (Auto) 0.05 K/mm3 (0.000-0.0310) H 11/20/17 18:08 Neutrophils % 67.8 % (42-75.0) 11/20/17 18:08 Lymphocytes % 16.8 % (20-51) L 11/20/17 18:08 Monocytes % 6.8 % (0.0-9) 11/20/17 18:08 Eosinophils % 7.2 % (0.0-3.0) H 11/20/17 18:08 Basophils % 0.9 % (0.0-1.0) 11/20/17 18:08 Nucleated RBC % 0.0 k/mm3 (0-1) 11/20/17 18:08 Neutrophils # 7.2 K/mm3 (1.3-6.0) H 11/20/17 18:08 Lymphocytes # 1.80 k/mm3 (1.5-3.5) 11/20/17 18:08 Monocytes # 0.7 k/mm3 (0.0-1.0) 11/20/17 18:08 Eosinophils # 0.8 k/mm3 (0.0-0.7) H 11/20/17 18:08 Absolute Basophils 0.1 k/mm3 (0.0-0.1) 11/20/17 18:08 Sodium 134 mmol/L (132-142) 11/20/17 18:08 Plasma Sodium 134 mmol/L (130-142) 11/20/17 18:08 Potassium 4.8 mmol/L (3.4-4.6) H 11/20/17 18:08 Chloride 102 mmol/L (97-106) 11/20/17 18:08 Carbon Dioxide 23.7 mmol/L (24-32.6) L 11/20/17 18:08 Anion Gap 13.1 mmol/L (6.8-13.8) 11/20/17 18:08 BUN 32 mg/dL (6-23) H 11/20/17 18:08 Creatinine 2.59 mg/dL (0.4-1.4) H 11/20/17 18:08 Est GFR (Non-Af Amer) 25 mL/min (60-130) L 11/20/17 18:08 BUN/Creatinine Ratio 12.4 (9.0-21.6) 11/20/17 18:08 Random Glucose 111 mg/dL (70-110) H 11/20/17 18:08 Calcium 9.3 mg/dL (7.9-10.9) 11/20/17 18:08 Calcium Adj for Albumin 9.5 mg/dL (8.4-10.2) 11/20/17 18:08 Total Bilirubin 0.4 mg/dL (0.0-1.1) 11/20/17 18:08 AST 19 U/L (0-48) 11/20/17 18:08 ALT 18 U/L (19-67) L 11/20/17 18:08 Alkaline Phosphatase 107 U/L (50-170) 11/20/17 18:08 B-Natriuretic Peptide 4471 pg/mL (5-650) H 11/20/17 18:08 Total Protein 7.6 gm/dL (6.2-8.2) 11/20/17 18:08 Albumin 3.3 gm/dl (3.4-5.0) L 11/20/17 18:08 Urine Color Yellow 11/20/17 19:00 Urine Appearance Clear (CLEAR) 11/20/17 19:00 Urine pH 5.5 pH (5.0-7.0) 11/20/17 19:00 Ur Specific Schuyler 1.025 SP.GR. (1.005-1.030) 11/20/17 19:00 Urine Protein 30 mg/dL (NEGATIVE) H 11/20/17 19:00 Urine Glucose (UA) Negative mg/dL (NEGATIVE) 11/20/17 19:00 Urine Ketones Negative mg/dL (NEGATIVE) 11/20/17 19:00 Urine Blood Negative /ul (NEGATIVE) 11/20/17 19:00 Urine Nitrate Negative (NEGATIVE) 11/20/17 19:00 Urine Bilirubin Negative mg/dl (NEGATIVE) 11/20/17 19:00 Prot Sulfosalicylic Acd 1+ mg/dL (0) 11/20/17 19:00 Urine Urobilinogen Normal EU/dl (NORMAL) 11/20/17 19:00 Ur Leukocyte Esterase Negative /ul (NEGATIVE) 11/20/17 19:00 Urine RBC None seen /hpf (0-5) 11/20/17 19:00 Urine WBC None seen /hpf (0-5) 11/20/17 19:00 Ur Epithelial Cells Trace /hpf (0-5) 11/20/17 19:00 Urine Bacteria Trace (NONE) 11/20/17 19:00 Urine Culture Comments No culture indicated 11/20/17 19:00 Assessment/Plan - Assessment/Plan (1) Failure of outpatient treatment Problem: Acute (2) Near syncope Assessment: likely due to hypoxemia in the low 70's with exertion Problem: Acute (3) COPD exacerbation Assessment: continue with IV solumedrol and levaquin, breathing treatments. Problem: Acute (4) Pulmonary hypertension Assessment: continue with O2 supplementation. will get ABG. Problem: Chronic (5) Elevated brain natriuretic peptide (BNP) level Assessment: multifactorial- COPD/PHTN/H/O CHF, diastolic but currently euvolemic Problem: Acute (6) Dyspnea on exertion Assessment: multifactorial- COPD/PHTN/Chronic diastolic dysfunction although he is euvolemic with this admission Problem: Acute (7) Hypertension Problem: Chronic Qualifiers: Hypertension type: essential hypertension Qualified Code(s): I10 - Essential (primary) hypertension (8) CRF (chronic renal failure) Problem: Chronic Qualifiers: Chronic kidney disease stage: stage 4 (severe) Qualified Code(s): N18.4 - Chronic kidney disease, stage 4 (severe) (9) CHF (congestive heart failure) Assessment: euvolemic with this admission Problem: Chronic Qualifiers: Heart failure type: diastolic Heart failure chronicity: chronic Qualified Code(s): I50.32 - Chronic diastolic (congestive) heart failure
[2017-11-20] MEDS ORDERED: ALBUTEROL SULFATE 200 PUFF INHALER IH PRN (21:36)
[2017-11-20] MEDS ORDERED: diphenhydrAMINE HCL 25 MG CAPSULE PO ONE (22:00)
[2017-11-20] MEDS: METHYLPREDNISOLONE SOD SUCC/PF 40 MG/ML VIAL IV SCH (22:10)
[2017-11-20] MEDS ORDERED: SENNOSIDES 8.6 MG TABLET PO PRN (22:12)
[2017-11-20] MEDS: ROSUVASTATIN CALCIUM 20 MG TABLET PO SCH (22:16)
[2017-11-20] MEDS: NORTRIPTYLINE HCL 25 MG CAPSULE PO SCH (22:16)
[2017-11-21] MEDS: METHYLPREDNISOLONE SOD SUCC/PF 40 MG/ML VIAL IV SCH ×4 (03:58→21:19)
[2017-11-21] MEDS ORDERED: NORMAL SALINE 1,000 ML IV PRN (04:02)
[2017-11-21] MEDS ORDERED: ALBUTEROL SULFATE 2.5 MG/0.5 ML VIAL.NEB IH PRN (06:30)
[2017-11-21] MEDS ORDERED: PANTOPRAZOLE SODIUM 40 MG TABLET.EC PO SCH (07:00)
[2017-11-21] MEDS ORDERED: LEVOTHYROXINE SODIUM 50 MCG TABLET PO SCH (07:00)
[2017-11-21] MEDS: LEVOTHYROXINE SODIUM 25 MCG TABLET PO SCH (07:44)
[2017-11-21] MEDS: PANTOPRAZOLE SODIUM 40 MG TABLET.EC PO SCH (07:44)
[2017-11-21] MEDS: AZELASTINE HCL 200 SPRAY INHALER NS SCH ×2 (09:46→21:18)
[2017-11-21] MEDS: CALCITRIOL 0.25 MCG CAPSULE PO SCH (09:46)
[2017-11-21] MEDS ORDERED: LEVOFLOXACIN 250 MG TABLET PO SCH (11:00)
[2017-11-21] MEDS: ALBUTEROL SULFATE/IPRATROPIUM 3 ML NEBU IH PRN (20:03)
[2017-11-21] MEDS: NORTRIPTYLINE HCL 25 MG CAPSULE PO SCH (21:19)
[2017-11-21] MEDS: ROSUVASTATIN CALCIUM 20 MG TABLET PO SCH (21:19)
[2017-11-22] MEDS: METHYLPREDNISOLONE SOD SUCC/PF 40 MG/ML VIAL IV SCH ×4 (03:48→22:04)
[2017-11-22] MEDS: LEVOTHYROXINE SODIUM 25 MCG TABLET PO SCH (07:33)
[2017-11-22] MEDS: PANTOPRAZOLE SODIUM 40 MG TABLET.EC PO SCH (07:33)
[2017-11-22] MEDS: AZELASTINE HCL 200 SPRAY INHALER NS SCH ×2 (09:10→22:03)
[2017-11-22] MEDS: CALCITRIOL 0.25 MCG CAPSULE PO SCH (09:11)
[2017-11-22] MEDS ORDERED: LEVOFLOXACIN 500 MG TABLET PO SCH (11:00)
[2017-11-22 11:13] LABS: Anion Gap 11.9 mmol/L (6.8-13.8); BUN/Creatinine Ratio 14.1 (9.0-21.6); Carbon Dioxide 22.2 mmol/L (24-32.6); Estimated Creat Clear 20.4; Potassium 5.1 mmol/L (3.4-4.6)
[2017-11-22] MEDS: ALBUTEROL SULFATE/IPRATROPIUM 3 ML NEBU IH PRN (11:34)
[2017-11-22] MEDS: NORMAL SALINE 1,000 ML IV PRN (13:23)
[2017-11-22] MEDS: NORTRIPTYLINE HCL 25 MG CAPSULE PO SCH (22:04)
[2017-11-22] MEDS: ROSUVASTATIN CALCIUM 20 MG TABLET PO SCH (22:04)
[2017-11-23] MEDS: METHYLPREDNISOLONE SOD SUCC/PF 40 MG/ML VIAL IV SCH ×3 (03:17→17:08)
[2017-11-23] MEDS: NORMAL SALINE 1,000 ML IV PRN (06:04)
[2017-11-23] MEDS: LEVOTHYROXINE SODIUM 25 MCG TABLET PO SCH (07:27)
[2017-11-23] MEDS: PANTOPRAZOLE SODIUM 40 MG TABLET.EC PO SCH (07:27)
--- NOTE | 2017-11-23 07:57 | PN ---
Subjective - Date and Time Seen Date: 11/21/17 Time: 12:15 Subjective Narrative: Patient still has significant shortness of breath, especially with minimal activity. Objective - Review of Systems Generalized/Overall Review: Reports: Weakness, Fatigue Respiratory: Reports: Cough, Shortness of Breath, Wheezing Misc: All systems neg except as marked - Vitals Vitals: Last Vital Signs Temp 36.8 C 11/23/17 06:00 Pulse 76 11/23/17 06:41 Resp 20 11/23/17 06:00 BP 139/77 11/23/17 06:00 Pulse Ox 90 L 11/23/17 06:00 - Abnormal Lab Findings Abnormal Lab Findings: Abnormal Lab Results 11/22/17 Range/Units 10:50 Potassium 5.1 H (3.4-4.6) mmol/L Carbon Dioxide 22.2 L (24-32.6) mmol/L BUN 38 H (6-23) mg/dL Creatinine 2.70 H (0.4-1.4) mg/dL Est GFR (Non-Af Amer) 24 L (60-130) mL/min Random Glucose 260 H D (70-110) mg/dL - Exam Constitutional: Present: Alert, Oriented x3, Cooperative, Elderly, Thin and frail ENT Exam: Present: hearing grossly normal, moist mucous membranes Respiratory: Present: decreased breath sounds, wheezing, expiration (prolonged) Cardiovascular/Chest: Present: regular rate, rhythm Abdomen: Present: soft, nontender, nondistended Skin Exam: Present: normal color, warm/dry Appearance: Present: appropriate appearance, appropriate insight, neat, no memory impairment Eye contact: Present: cooperative, good eye contact, normal speech Thoughts: Present: normal thought pattern, no apparent hallucination Assessment/Plan Plan Narrative: Continue current treatment for AECOPD including steroids, antibiotics and [id number] nebs. Continue to titrate down to baseline oxygen needs as able. Patient will likely need to remain in the hospital for at least the next 2-3 days for ongoing monitoring of his pulmonary status. - Problems/Diagnosis (1) COPD exacerbation Problem: Acute (2) Acute and chronic respiratory failure Problem: Acute
--- NOTE | 2017-11-23 07:59 | PN ---
Subjective - Date and Time Seen Date: 11/22/17 Time: 11:10 Subjective Narrative: Patient still has significant shortness of breath, especially with minimal activity. No new issues or concerns this AM. Objective - Review of Systems Generalized/Overall Review: Reports: Weakness, Fatigue Respiratory: Reports: Cough, Shortness of Breath, Wheezing Misc: All systems neg except as marked - Vitals Vitals: Last Vital Signs Temp 36.8 C 11/23/17 06:00 Pulse 76 11/23/17 06:41 Resp 20 11/23/17 06:00 BP 139/77 11/23/17 06:00 Pulse Ox 90 L 11/23/17 06:00 - Abnormal Lab Findings Abnormal Lab Findings: Abnormal Lab Results 11/22/17 Range/Units 10:50 Potassium 5.1 H (3.4-4.6) mmol/L Carbon Dioxide 22.2 L (24-32.6) mmol/L BUN 38 H (6-23) mg/dL Creatinine 2.70 H (0.4-1.4) mg/dL Est GFR (Non-Af Amer) 24 L (60-130) mL/min Random Glucose 260 H D (70-110) mg/dL - Exam Constitutional: Present: Alert, Oriented x3, Cooperative, Elderly, Thin and frail Respiratory: Present: decreased breath sounds, wheezing, expiration (prolonged) Cardiovascular/Chest: Present: regular rate, rhythm Abdomen: Present: soft, nontender, nondistended Skin Exam: Present: warm/dry Neurologic: Present: no motor/sensory deficits, alert, normal mood/affect, oriented x 3 Appearance: Present: appropriate appearance, appropriate insight, neat, no memory impairment Eye contact: Present: cooperative, good eye contact, normal speech Thoughts: Present: normal thought pattern, no apparent hallucination Assessment/Plan Plan Narrative: Continue pulmonary toilet for treatment of AECOPD including steroids, antibiotics, [id number] nebs and supplemental oxygen. Hopefully patient will be improved and stable for discharge within the next 2-3 days. - Problems/Diagnosis (1) COPD exacerbation Problem: Acute
[2017-11-23 08:42] LABS: Anion Gap 15.3 mmol/L (6.8-13.8); BUN/Creatinine Ratio 15.2 (9.0-21.6); Calcium * 9.3 mg/dL (7.9-10.9); Carbon Dioxide 21.4 mmol/L (24-32.6); Estimated Creat Clear 20.9; Potassium 4.7 mmol/L (3.4-4.6)
[2017-11-23] MEDS: CALCITRIOL 0.25 MCG CAPSULE PO SCH (09:17)
[2017-11-23] MEDS: AZELASTINE HCL 200 SPRAY INHALER NS SCH ×2 (09:17→20:38)
[2017-11-23] MEDS: LEVOFLOXACIN 500 MG TABLET PO SCH (10:31)
--- NOTE | 2017-11-23 11:47 | PN ---
Subjective - Date and Time Seen Date: 11/23/17 Time: 11:43 Subjective Narrative: He says he still go down to the 74% O2 sat when he walks from chair to to the door and if he continues he knows he will feel like passing out. Objective - Review of Systems Generalized/Overall Review: Reports: Weakness. Denies: Chills, Fever Respiratory: Reports: Shortness of Breath. Denies: Cough, Wheezing Cardiac: Denies: Chest Pain, Edema, Palpitations Abdominal: Denies: Nausea, Vomiting Genitourinary Symptoms: Denies: Urgency, Frequency - Vitals Vitals: Last Vital Signs Temp 36.6 C 11/23/17 10:52 Pulse 79 11/23/17 10:52 Resp 20 11/23/17 10:52 BP 126/60 11/23/17 10:52 Pulse Ox 91 L 11/23/17 10:52 - Abnormal Lab Findings Abnormal Lab Findings: Abnormal Lab Results 11/23/17 Range/Units 08:14 Potassium 4.7 H (3.4-4.6) mmol/L Carbon Dioxide 21.4 L (24-32.6) mmol/L Anion Gap 15.3 H (6.8-13.8) mmol/L BUN 40 H (6-23) mg/dL Creatinine 2.64 H (0.4-1.4) mg/dL Est GFR (Non-Af Amer) 25 L (60-130) mL/min Random Glucose 172 H D (70-110) mg/dL - Exam Constitutional: Present: Alert, Oriented x3, Cooperative ENT Exam: Present: hearing grossly normal Neck: Present: supple Respiratory: Present: decreased breath sounds, No rales, No wheezing Cardiovascular/Chest: Present: regular rate, rhythm, no JVD, no murmur Abdomen: Present: Normal bowel sounds, soft, nontender, nondistended Extremity: Present: no pedal edema, no calf tenderness Assessment/Plan Plan Narrative: Will add LAMA to his regimen. - Problems/Diagnosis (1) Failure of outpatient treatment Problem: Acute (2) Near syncope Problem: Acute (3) COPD exacerbation Problem: Acute (4) Pulmonary hypertension Problem: Chronic (5) Elevated brain natriuretic peptide (BNP) level Problem: Acute (6) Dyspnea on exertion Problem: Acute (7) Hypertension Problem: Chronic Qualifiers: Hypertension type: essential hypertension Qualified Code(s): I10 - Essential (primary) hypertension (8) CRF (chronic renal failure) Problem: Chronic Qualifiers: Chronic kidney disease stage: stage 4 (severe) Qualified Code(s): N18.4 - Chronic kidney disease, stage 4 (severe) (9) CHF (congestive heart failure) Problem: Chronic Qualifiers: Heart failure type: diastolic Heart failure chronicity: chronic Qualified Code(s): I50.32 - Chronic diastolic (congestive) heart failure
[2017-11-23] MEDS: ALBUTEROL SULFATE 2.5 MG/0.5 ML VIAL.NEB IH SCH ×2 (13:00→18:28)
[2017-11-23] MEDS: TIOTROPIUM BROMIDE 5 CAP INHALER IH SCH (13:23)
[2017-11-23] MEDS: ROSUVASTATIN CALCIUM 20 MG TABLET PO SCH (20:38)
[2017-11-23] MEDS: NORTRIPTYLINE HCL 25 MG CAPSULE PO SCH (20:39)
[2017-11-24] MEDS: METHYLPREDNISOLONE SOD SUCC/PF 40 MG/ML VIAL IV SCH ×2 (01:08→08:16)
[2017-11-24] MEDS: ALBUTEROL SULFATE 2.5 MG/0.5 ML VIAL.NEB IH SCH (06:11)
[2017-11-24] MEDS: PANTOPRAZOLE SODIUM 40 MG TABLET.EC PO SCH (06:32)
[2017-11-24] MEDS: LEVOTHYROXINE SODIUM 25 MCG TABLET PO SCH (06:32)
[2017-11-24] MEDS: TIOTROPIUM BROMIDE 5 CAP INHALER IH SCH (08:15)
[2017-11-24] MEDS: AZELASTINE HCL 200 SPRAY INHALER NS SCH ×2 (08:15→20:36)
[2017-11-24] MEDS: CALCITRIOL 0.25 MCG CAPSULE PO SCH (08:15)
--- NOTE | 2017-11-24 11:14 | PN ---
Subjective - Date and Time Seen Date: 11/24/17 Time: 11:10 Subjective Narrative: He says his O2 saturationd drops down tot the 80's from chair to the door whic is improved from yesterday. . Objective - Review of Systems Generalized/Overall Review: Reports: Weakness. Denies: Chills, Fever Respiratory: Reports: Shortness of Breath. Denies: Wheezing Cardiac: Denies: Chest Pain, Edema, Palpitations Abdominal: Denies: Nausea, Vomiting Genitourinary Symptoms: Denies: Urgency, Frequency - Vitals Vitals: Last Vital Signs Temp 37.0 C 11/24/17 10:50 Pulse 97 11/24/17 10:50 Resp 22 H 11/24/17 10:50 BP 134/63 11/24/17 10:50 Pulse Ox 90 L 11/24/17 10:50 - Exam Constitutional: Present: Alert, Oriented x3, Cooperative, Elderly ENT Exam: Present: hearing grossly normal Neck: Present: supple Respiratory: Present: decreased breath sounds, No rales, No wheezing Cardiovascular/Chest: Present: regular rate, rhythm, no JVD, no murmur Extremity: Present: no pedal edema, no calf tenderness Assessment/Plan - Problems/Diagnosis (1) Pulmonary hypertension Problem: Chronic Narrative: will add LABA + ICS. Spiriva started yesterday. possible discharge in a.m. (2) Failure of outpatient treatment Problem: Acute (3) Near syncope Problem: Acute (4) COPD exacerbation Problem: Acute (5) Elevated brain natriuretic peptide (BNP) level Problem: Acute (6) Dyspnea on exertion Problem: Acute (7) Hypertension Problem: Chronic Qualifiers: Hypertension type: essential hypertension Qualified Code(s): I10 - Essential (primary) hypertension (8) CRF (chronic renal failure) Problem: Chronic Qualifiers: Chronic kidney disease stage: stage 4 (severe) Qualified Code(s): N18.4 - Chronic kidney disease, stage 4 (severe) (9) CHF (congestive heart failure) Problem: Chronic Qualifiers: Heart failure type: diastolic Heart failure chronicity: chronic Qualified Code(s): I50.32 - Chronic diastolic (congestive) heart failure
[2017-11-24] MEDS: FLUTICASONE/SALMETEROL 14 PUFF DISK.W.DEV IH SCH ×2 (11:38→20:37)
[2017-11-24] MEDS: ROSUVASTATIN CALCIUM 20 MG TABLET PO SCH (20:37)
[2017-11-24] MEDS: NORTRIPTYLINE HCL 25 MG CAPSULE PO SCH (20:37)
[2017-11-25] MEDS: LEVOTHYROXINE SODIUM 25 MCG TABLET PO SCH (06:37)
[2017-11-25] MEDS: PANTOPRAZOLE SODIUM 40 MG TABLET.EC PO SCH (06:37)
[2017-11-25] MEDS: CALCITRIOL 0.25 MCG CAPSULE PO SCH (08:14)
[2017-11-25] MEDS: AZELASTINE HCL 200 SPRAY INHALER NS SCH ×2 (08:14→20:38)
[2017-11-25] MEDS: TIOTROPIUM BROMIDE 5 CAP INHALER IH SCH (08:14)
[2017-11-25] MEDS: FLUTICASONE/SALMETEROL 14 PUFF DISK.W.DEV IH SCH ×2 (08:14→20:38)
[2017-11-25] MEDS: LEVOFLOXACIN 500 MG TABLET PO SCH (11:33)
--- NOTE | 2017-11-25 12:21 | DS ---
(1) Pulmonary hypertension Problem: Chronic (2) Failure of outpatient treatment Problem: Acute (3) Near syncope Problem: Acute (4) COPD exacerbation Problem: Acute (5) Elevated brain natriuretic peptide (BNP) level Problem: Acute (6) Dyspnea on exertion Problem: Acute (7) Hypertension Problem: Chronic Qualifiers: Hypertension type: essential hypertension Qualified Code(s): I10 - Essential (primary) hypertension (8) CRF (chronic renal failure) Problem: Chronic Qualifiers: Chronic kidney disease stage: stage 4 (severe) Qualified Code(s): N18.4 - Chronic kidney disease, stage 4 (severe) (9) CHF (congestive heart failure) Problem: Chronic Qualifiers: Heart failure type: diastolic Heart failure chronicity: chronic Qualified Code(s): I50.32 - Chronic diastolic (congestive) heart failure Description of Stay: Felipe Quach, is an 82-year-old white male, patient of Dr. Lacey, with previous medical history of COPD, chronic renal failure stage IV, peripheral vascular disease, who was admitted on 11/20/2017 because of weakness and near syncopal episodes. The patient said that he has been having cough productive initially of whitish phlegm for the last few weeks and lately more yellowish in color associated with occasional wheezing. . He also has been having weakness for the last month and a sensation of almost passing out with exertion. He was seen in the clinic last week and was given azithromycin and his oxygen was increased by [address] Dahl. He did not get better and went to the emergency room . In the emergency room, his oxygen saturation dropped down to the low 70s with exertion. He was then admitted for further evaluation and treatment. He was needing 6 L NC. He as started on IV antibiotics, IV solumedrol and continued with breathing treatments. He was just on a rescue inhaler for his COPD . His O2 saturation dropped down to the 70's-80's from his chair to the door of his room. LABA plus ICS and LAMA were added. His O2 saturation got better after these additions. He is now stable to be discharged and follow up with his PCP in 1 week. Procedures Performed: none Results and Findings: Pending Mircobiology Results 11/20/17 22:03 Blood Blood Culture - Preliminary NO GROWTH AFTER 48 HOURS Lab Pending Results 11/20/17 18:08: WBC 10.7 H, RBC 5.34, Hgb 16.1, Hct 49.6, MCV 92.9, MCH 30.1, MCHC 32.5, RDW 15.9 H, Plt Count 269, MPV 10.2, Immature Gran % (Auto) 0.50 H, Immature Gran # (Auto) 0.05 H, Neutrophils % 67.8, Lymphocytes % 16.8 L, Monocytes % 6.8, Eosinophils % 7.2 H, Basophils % 0.9, Nucleated RBC % 0.0, Neutrophils # 7.2 H, Lymphocytes # 1.80, Monocytes # 0.7, Eosinophils # 0.8 H, Absolute Basophils 0.1 11/20/17 18:08: Sodium 134, Plasma Sodium 134, Potassium 4.8 H, Chloride 102, Carbon Dioxide 23.7 L, Anion Gap 13.1, BUN 32 H, Creatinine 2.59 H, Est GFR (No n-Af Amer) 25 L, BUN/Creatinine Ratio 12.4, Random Glucose 111 H, Calcium 9.3, Calcium Adj for Albumin 9.5, Total Bilirubin 0.4, AST 19, ALT 18 L, Alkaline Phosphatase 107, B-Natriuretic Peptide 4471 H, Total Protein 7.6, Albumin 3.3 L 11/20/17 19:00: Urine Color Yellow, Urine Appearance Clear, Urine pH 5.5, Ur Specific [place] 1.025, Urine Protein 30 H, Urine Glucose (UA) Negative, Urine Ketones Negative, Urine Blood Negative, Urine Nitrate Negative, Urine Bilirubin Negative, Prot Sulfosalicylic Acd 1+, Urine Urobilinogen Normal, Ur Leukocyte Esterase Negative, Urine RBC None seen, Urine WBC None seen, Ur Epithelial Cells Trace, Urine Bacteria Trace, Urine Culture Comments No culture indicated 11/20/17 21:20: pCO2 29.2 L, pO2 65.9 L, HCO3 17.1 L, Total CO2 18.0 L, Base Excess -6.3 L, ABG pH 7.39, ABG O2 Sat (Measured) 93.1 L 11/22/17 10:50: Sodium 133, Plasma Sodium 136, Potassium 5.1 H, Chloride 104, Carbon Dioxide 22.2 L, Anion Gap 11.9, BUN 38 H, Creatinine 2.70 H, Est GFR (Non-Af Amer) 24 L, BUN/Creatinine Ratio 14.1, Random Glucose 260 H D, Calcium 9.0 11/23/17 08:14: Sodium 136, Plasma Sodium 137, Potassium 4.7 H, Chloride 104, Carbon Dioxide 21.4 L, Anion Gap 15.3 H, BUN 40 H, Creatinine 2.64 H, Est GFR (Non-Af Amer) 25 L, BUN/Creatinine Ratio 15.2, Random Glucose 172 H D, Calcium 9.3 Discharge Location: Home Disposition: Home Health Service Condition: Stable Discharge Activity: Activity as tolerated Discharge Diet: Low salt Referrals: Dorita Lacey DO [Primary Care Provider] - Additional Patient Instructions (free text): -Please make TCM appointment unless longterm discharge. Thank you! Sol @ ext:[phone]. [facility] at discharge- fax discharge instructions and call report to [phone]. Follow up with PCp in 1 week. Prescriptions (Any new or edited meds): Fluticasone/Salmeterol [Advair 250-50 Diskus] 1 puff IH BID #1 disk.w.dev Levofloxacin [Levaquin] 500 mg PO Q48H #3 tablet Tiotropium [place] [Spiriva] 1 cap IH DAILY #1 inhaler Complete Home Medications List: Complete Home Medication List: Sennosides [Senna] 2 tab PO HS PRN 04/10/13 Albuterol Sulfate [Proair Hfa] 2 puff IH Q6H PRN 01/26/17 Atorvastatin Calcium [Lipitor] 80 mg PO HS 01/26/17 azelastine 0.15 % (205.5 mcg) nasal spray 2 spray LON BID 09/07/17 esomeprazole magnesium 40 mg capsule,delayed release 40 mg PO DAILY PRN 09/07/17 ipratropium bromide 42 mcg (0.06 %) nasal spray 2 spray LON QID ml 09/07/17 ketoconazole 2 % shampoo 1 applic TP 2XW 09/07/17 levothyroxine 50 mcg tablet 25 mcg PO DAILY tab 09/07/17 nortriptyline 25 mg capsule 25 mg PO HS PRN 09/07/17 diazepam 5 mg tablet 5 mg PO DAILY PRN #30 tab 10/16/17 pantoprazole 40 mg tablet,delayed release 40 mg PO DAILY #30 tab 10/16/17 Calcitriol 0.25 mcg PO DAILY capsule 11/25/17 Fluticasone/Salmeterol [Advair 250-50 Diskus] 1 puff IH BID #1 disk.w.dev Levofloxacin [Levaquin] 500 mg PO Q48H #3 tablet 11/25/17 Tiotropium [place] [Spiriva] 1 cap IH DAILY #1 inhaler 11/25/17
[2017-11-25] MEDS: ROSUVASTATIN CALCIUM 20 MG TABLET PO SCH (20:37)
[2017-11-25] MEDS: NORTRIPTYLINE HCL 25 MG CAPSULE PO SCH (20:38)
[2017-11-26 05:54] LABS: Hematocrit 44.2 % (42.0-52.0); Hemoglobin 14.2 gm/dL (13.5-18.0); Mean Cell Volume 91.5 fl (78-100); Mean Corpuscular Hemoglobin 29.4 pg (27-31); Mean Corpuscular Hgb Conc 32.1 g/dl (32-36); Mean Platelet Volume 11.2 fl (8-11.3); Platelet Count 244 K/mm3 (150-450); Red Blood Count 4.83 M/mm3 (4.7-6.0); Red Cell Distribution Width 15.8 % (11.5-14.0); White Blood Count 14.8 K/mm3 (4.0-10.5)
[2017-11-26 05:56] LABS: Total Cells Counted 100
[2017-11-26 06:01] LABS: Anion Gap 9.4 mmol/L (6.8-13.8); BUN/Creatinine Ratio 21.5 (9.0-21.6); Calcium * 8.9 mg/dL (7.9-10.9); Carbon Dioxide 26.6 mmol/L (24-32.6); Estimated Creat Clear 21.5
[2017-11-26 06:31] LABS: Atypical (Reactive) Lymph 1 % (0-2); Band 5 % (0-2.0); Eosinophil 1 % (0-3); Immature Granulocyte 1 (0-1); Lymphocyte 15 % (20-51); Monocyte 10 % (0-9); Neutrophil 67 % (42-75); Neutrophil # 9.9 K/mm3 (1.3-6.0)
[2017-11-26 06:32] LABS: Platelet Estimate Normal (NORMAL)
[2017-11-26 06:34] LABS: RBC Morphology Normal (NORMAL)
[2017-11-26] MEDS: PANTOPRAZOLE SODIUM 40 MG TABLET.EC PO SCH (07:13)
[2017-11-26] MEDS: LEVOTHYROXINE SODIUM 25 MCG TABLET PO SCH (07:13)
[2017-11-26] MEDS: TIOTROPIUM BROMIDE 5 CAP INHALER IH SCH (09:04)
[2017-11-26] MEDS: FLUTICASONE/SALMETEROL 14 PUFF DISK.W.DEV IH SCH (09:04)
[2017-11-26] MEDS: CALCITRIOL 0.25 MCG CAPSULE PO SCH (09:04)
[2017-11-26] MEDS: AZELASTINE HCL 200 SPRAY INHALER NS SCH (09:04)
--- NOTE | 2017-11-26 11:56 | DS ---
(1) Pulmonary hypertension Problem: Chronic (2) Failure of outpatient treatment Problem: Acute (3) Near syncope Problem: Acute (4) COPD exacerbation Problem: Acute (5) Elevated brain natriuretic peptide (BNP) level Problem: Acute (6) Dyspnea on exertion Problem: Acute (7) Hypertension Problem: Chronic Qualifiers: Hypertension type: essential hypertension Qualified Code(s): I10 - Essential (primary) hypertension (8) CRF (chronic renal failure) Problem: Chronic Qualifiers: Chronic kidney disease stage: stage 4 (severe) Qualified Code(s): N18.4 - Chronic kidney disease, stage 4 (severe) (9) CHF (congestive heart failure) Problem: Chronic Qualifiers: Heart failure type: diastolic Heart failure chronicity: chronic Qualified Code(s): I50.32 - Chronic diastolic (congestive) heart failure Description of Stay: Felipe Quach, is an 82-year-old white male, patient of Dr. Lacey, with previous medical history of COPD, chronic renal failure stage IV, peripheral vascular disease, who was admitted on 11/20/2017 because of weakness and near syncopal episodes. The patient said that he has been having cough productive initially of whitish phlegm for the last few weeks and lately more yellowish in color associated with occasional wheezing. . He also has been having weakness for the last month and a sensation of almost passing out with exertion. He was seen in the clinic last week and was given azithromycin and his oxygen was increased by [address] Dahl. He did not get better and went to the emergency room . In the emergency room, his oxygen saturation dropped down to the low 70s with exertion. He was then admitted for further evaluation and treatment. He was needing 6 L NC. He as started on IV antibiotics, IV solumedrol and continued with breathing treatments. He was just on a rescue inhaler for his COPD . His O2 saturation dropped down to the 70's-80's from his chair to the door of his room. LABA plus ICS and LAMA were added. His discharge yesterday was cancelled per report that his O2 saturation still dropped tothe 70's when walked to the door. This morning he is doing better. His O2 saturation is getting better with the additon of LAB + ICS and LAMA. His WBC is elevated likely due to his IV soulumedrol and later ICS. His BP has been up ever since his discharge was cancelled. He is now stable to be discharged and follow up with his PCP in 1 week. He knows to increase his O2 with activity and exertion and to go back to his baseline when he is resting. Procedures Performed: none Results and Findings: Lab Pending Results 11/20/17 18:08: WBC 10.7 H, RBC 5.34, Hgb 16.1, Hct 49.6, MCV 92.9, MCH 30.1, MCHC 32.5, RDW 15.9 H, Plt Count 269, MPV 10.2, Immature Gran % (Auto) 0.50 H, Immature Gran # (Auto) 0.05 H, Neutrophils % 67.8, Lymphocytes % 16.8 L, Monocytes % 6.8, Eosinophils % 7.2 H, Basophils % 0.9, Nucleated RBC % 0.0, Neutrophils # 7.2 H, Lymphocytes # 1.80, Monocytes # 0.7, Eosinophils # 0.8 H, Absolute Basophils 0.1 11/20/17 18:08: Sodium 134, Plasma Sodium 134, Potassium 4.8 H, Chloride 102, Carbon Dioxide 23.7 L, Anion Gap 13.1, BUN 32 H, Creatinine 2.59 H, Est GFR (Non-Af Amer) 25 L, BUN/Creatinine Ratio 12.4, Random Glucose 111 H, Calcium 9.3, Calcium Adj for Albumin 9.5, Total Bilirubin 0.4, AST 19, ALT 18 L, Al kaline Phosphatase 107, B-Natriuretic Peptide 4471 H, Total Protein 7.6, Albumin 3.3 L 11/20/17 19:00: Urine Color Yellow, Urine Appearance Clear, Urine pH 5.5, Ur Specific [place] 1.025, Urine Protein 30 H, Urine Glucose (UA) Negative, Urine Ketones Negative, Urine Blood Negative, Urine Nitrate Negative, Urine Bilirubin Negative, Prot Sulfosalicylic Acd 1+, Urine Urobilinogen Normal, Ur Leukocyte Esterase Negative, Urine RBC None seen, Urine WBC None seen, Ur Epithelial Cells Trace, Urine Bacteria Trace, Urine Culture Comments No culture indicated 11/20/17 21:20: pCO2 29.2 L, pO2 65.9 L, HCO3 17.1 L, Total CO2 18.0 L, Base Excess -6.3 L, ABG pH 7.39, ABG O2 Sat (Measured) 93.1 L 11/22/17 10:50: Sodium 133, Plasma Sodium 136, Potassium 5.1 H, Chloride 104, Carbon Dioxide 22.2 L, Anion Gap 11.9, BUN 38 H, Creatinine 2.70 H, Est GFR (Non-Af Amer) 24 L, BUN/Creatinine Ratio 14.1, Random Glucose 260 H D, Calcium 9.0 11/23/17 08:14: Sodium 136, Plasma Sodium 137, Potassium 4.7 H, Chloride 104, Carbon Dioxide 21.4 L, Anion Gap 15.3 H, BUN 40 H, Creatinine 2.64 H, Est GFR (Non-Af Amer) 25 L, BUN/Creatinine Ratio 15.2, Random Glucose 172 H D, Calcium 9.3 11/26/17 05:15: WBC 14.8 H, RBC 4.83, Hgb 14.2, Hct 44.2, MCV 91.5, MCH 29.4, MCHC 32.1, RDW 15.8 H, Plt Count 244, MPV 11.2, Neutrophils % (Manual) 67, Band Neuts % (Manual) 5 H, Lymphocytes % (Manual) 15 L, Monocytes % (Manual) 10 H, Eosinophils % (Manual) 1, Immature Granulocytes 1, Neutrophils # (Manual) 9.9 H, Lymphocytes # (Manual) 2.2, Monocytes # (Manual) 1.5 H, Eosinophils # (Manual) 0.1, Atypic/Reactive Lymphs 1, Platelet Estimate Normal, RBC Morphology Normal 11/26/17 05:15: Sodium 135, Plasma Sodium 135, Potassium 4.0, Chloride 103, Carbon Dioxide 26.6, Anion Gap 9.4, BUN 55 H, Creatinine 2.56 H, Est GFR (Non-Af Amer) 26 L, BUN/Creatinine Ratio 21.5, Random Glucose 109 D, Calcium 8.9 Discharge Location: Home [facility] Condition: Stable Discharge Activity: Activity as tolerated Discharge Diet: Low salt Referrals: Dorita Lacey DO [Primary Care Provider] - Additional Patient Instructions (free text): -Please make TCM appointment unless fdc discharge. Thank you! Sol @ ext:[phone]. Resume [facility] at discharge- fax discharge instructions and call report to [phone]. Follow up with PCp in 1 week. Prescriptions (Any new or edited meds): Fluticasone/Salmeterol [Advair 250-50 Diskus] 1 puff IH BID #1 disk.w.dev Levofloxacin [Levaquin] 500 mg PO Q48H #3 tablet Tiotropium [place] [Spiriva] 1 cap IH DAILY #1 inhaler Complete Home Medications List: Complete Home Medication List: Sennosides [Senna] 2 tab PO HS PRN 04/10/13 Albuterol Sulfate [Proair Hfa] 2 puff IH Q6H PRN 01/26/17 Atorvastatin Calcium [Lipitor] 80 mg PO HS 01/26/17 azelastine 0.15 % (205.5 mcg) nasal spray 2 spray LON BID 09/07/17 esomeprazole magnesium 40 mg capsule,delayed release 40 mg PO DAILY PRN 09/07/17 ipratropium bromide 42 mcg (0.06 %) nasal spray 2 spray LON QID ml 09/07/17 ketoconazole 2 % shampoo 1 applic TP 2XW 09/07/17 levothyroxine 50 mcg tablet 25 mcg PO DAILY tab 09/07/17 nortriptyline 25 mg capsule 25 mg PO HS PRN 09/07/17 diazepam 5 mg tablet 5 mg PO DAILY PRN #30 tab 10/16/17 pantoprazole 40 mg tablet,delayed release 40 mg PO DAILY #30 tab 10/16/17 Calcitriol 0.25 mcg PO DAILY capsule 11/25/17 Fluticasone/Salmeterol [Advair 250-50 Diskus] 1 puff IH BID #1 disk.w.dev 11/25/17 Levofloxacin [Levaquin] 500 mg PO Q48H #3 tablet 11/25/17 Tiotropium [place] [Spiriva] 1 cap IH DAILY #1 inhaler 11/25/17
[2017-11-26 15:25] VITALS: BP 166/96
== END 2017-11-26 15:06 | disposition home health service (06) | DRG 315 ==
LOC: ER 17:22 → MS 19:31
PROVIDERS: ADMIT Internal Medicine; ATTEND Internal Medicine
CPT/HCPCS: 36415; 36600; 71020; 71046; 80048; 80053; 81001; 82803; 83519; 83880; 85007; 85025; 87040; 87070; 93005; 94640; 94664; 96365; 96375; 97110; 97116; 97161; 97530; 99285